=== PATIENT | female | born 1945 | race Caucasian/White ===

== ENCOUNTER 2018-04-08 13:18 | Inpatient (IN) | payer MEDICARE ==
[2018-04-08 13:53] LABS: Hemoglobin 12.3 g/dL (12.0-16.0); Mean Corpuscular Hemoglobin 30.3 pg (27.0-31.0); Mean Corpuscular Volume 91.6 fL (78.0-98.0); RBC Distribution Width 12.1 % (11.5-14.5); Red Blood Cell (RBC) Count 4.08 mill/uL (4.20-5.40); White Blood Cell (WBC) Count 9.2 thou/uL (4.8-10.8)
[2018-04-08 14:10] LABS: ALT (SGPT) 25 U/L (8-55); AST (SGOT) 39 U/L (5-34); Albumin 3.2 g/dL (3.4-4.8); Alkaline Phosphatase 208 U/L (40-150); Anion Gap 19 mmol/L (10-20); BUN (Urea Nitrogen) 58 mg/dL (9.8-20.1); Bilirubin, Total 0.6 mg/dL (0.2-1.2); Calc. Creatinine Clearance 0 mL/min (70-130); Calcium 8.9 mg/dL (7.8-10.44); Carbon Dioxide 19 mmol/L (23-31); Chloride 106 mmol/L (98-107); Estimated GFR-MDRD 9; Globulin 3.5 g/dL (2.4-3.5); Glucose 156 mg/dL (83-110); Potassium 3.7 mmol/L (3.5-5.1); Protein, Total 6.7 g/dL (6.0-8.3); Sodium 140 mmol/L (136-145)
[2018-04-08 14:21] LABS: Band 20 % (5-11); Eosinophils 1 % (0-10); Lymphocytes 1 % (21-51); MDiff Complete? YES; Mean Platelet Volume 7.7 fL (7.4-10.4); Metamyelocyte 1 % (0-0); Monocytes 2 % (0-10); Myelocyte 1 % (0-0); Neutrophil 73 % (42-75); PLT Morphology Comment Appears Decreased; Platelet Count 115 thou/uL (130-400); Reactive Lymphocytes 1 % (0-10)
[2018-04-08 14:42] LABS: Bilirubin Negative (Negative); Blood, Urine Negative (Negative); Clarity CLOUDY (Clear); Glucose, Urine (Dipstick) Negative (Negative); Leukocyte Trace (Negative); Nitrite Negative (Negative); Protein, Urine (Dipstick) 100 mg/dL (Neg-Trace); Specific Gravity, Urine 1.019 (1.002-1.036); Urobilinogen 0.2 mg/dL (0.2-1.0); pH, Urine 5.5 (5.0-9.0)
[2018-04-08 14:44] LABS: Bacteria/HPF None Seen HPF (None Seen); RBC/HPF 0-3 HPF (0-3); WBC/HPF 0-3 HPF (0-3)
[2018-04-08 14:47] LABS: Pathc Cast-AUWi Flag 5.81 (0-2.49)
--- NOTE | 2018-04-08 14:52 | CT ---
CT BRAIN WITHOUT CONTRAST: Date: 04/08/18 HISTORY: Altered mental status, weakness. FINDINGS: No evidence of infarct, hemorrhage, midline shift, or abnormal extra-axial fluid collections are seen . The ventricular size is appropriate and the basilar cisterns are patent. The bony calvarium is inta ct. The visualized paranasal sinuses and mastoid air cells are well aerated. IMPRESSION: No CT evidence of acute intracranial process. POS: [facility]
[2018-04-08 14:57] LABS: Hyaline Casts/LPF 0-3 HYALINE CAST LPF (0-3 Hyaline); Renal Epithelial None Seen HPF (0-3); Transitional Epithelial NONE SEEN HPF (0-3)
[2018-04-08 14:58] LABS: Manual Microscopic Reviewed? No Path Casts Seen
--- NOTE | 2018-04-08 15:21 | RAD ---
PORTABLE CHEST 1 VIEW: Date: 04/08/18 Time: 1437 hours HISTORY: Altered mental status, weakness. FINDINGS: Comparison made with exam of 12/23/08. The heart size is normal. The aorta is tortuous. The lungs are expanded without lobar consolidation, pneumothoraces, or pleural effusions. IMPRESSION: No radiographic evidence of acute cardiopulmonary process. POS: [facility]
--- NOTE | 2018-04-08 15:24 | RAD ---
LEFT HIP TWO VIEWS: History: Pain. Comparison: None. FINDINGS: No fracture. No malalignment. The left obturator ring is intact. IMPRESSION: No acute abnormality. POS: [facility]
--- NOTE | 2018-04-08 15:24 | RAD ---
RIGHT FOREARM TWO VIEW: History: Injury. Pain. Comparison: None. FINDINGS: No acute fracture or malalignment. IMPRESSION: Intact forearm. POS: [facility]
--- NOTE | 2018-04-08 15:25 | RAD ---
PELVIC ONE VIEW: History: Injury. Comparison: None. FINDINGS: No fracture. No malalignment. The pubic symphysis is unremarkable. There are pulmonary vascular calcifications. IMPRESSION: No acute displaced fracture. POS: [facility]
--- NOTE | 2018-04-08 17:02 | CT ---
CT ABDOMEN AND PELVIS WITHOUT CONTRAST STONE PROTOCOL 04/08/18 HISTORY: Pain, fatigue, weakness. COMPARISON: None. FINDINGS: The lung bases are clear. The patient is rotated in the gantry causing some limitations. There is a 3 mm nodule in the right middle lobe, axial image 1. No pericardial effusion. Mild atherosclerotic plaque of the aorta. There is focal ectasia of the infr arenal abdominal aorta just above the iliac bifurcation with aorta measuring up to 2.4 cm. Cholecystectomy. The common bile duct is dilated measuring approximately 12 mm with what appears to b e a distal choledocholithiasis on axial image 37 and coronal image 69. Mild intrahepatic biliary dila tation. There is pelvic floor prolapse with prolapse of the urinary bladder. There is no nephroureter olithiasis or hydroureteronephrosis. No secondary evidence of recently passed stone. No perinephric s tranding. Spleen is mildly enlarged measuring 12 cm. No dilated loops of large or small bowel. Mild diverticular disease of the sigmoid colon without active current inflammation. No acute spine fracture. IMPRESSION: 1. Dilated intrahepatic and extrahepatic biliary system with common bile duct measuring up to 12 -13 mm. There is also distal likely a partially obstructing choledocholithiasis near the papilla. ERC P recommended. Recommend correlation with patient's biliary enzymes. 2. No nephroureterolithiasis or hydroureteronephrosis. No secondary evidence of a recently passe d stone. 3. Mild splenomegaly. POS: [facility]
[2018-04-08] MEDS ORDERED: Piperacillin/Tazobactam 4.5 GM VIAL ONE (17:05)
[2018-04-08 17:30] LABS: CRP (Inflammatory) 28.06 mg/dL (= or < 0.5); Magnesium 1.7 mg/dL (1.6-2.6)
[2018-04-08 17:34] LABS: Creatinine, Urine 116.93 mg/dL (47-110)
[2018-04-08 17:35] LABS: Troponin I 0.028 ng/mL (< 0.028)
[2018-04-08] MEDS ORDERED: Vancomycin HCl 1 GM in Premix Bag 1 BAG IVPB SCH (18:45)
[2018-04-08] MEDS ORDERED: Meropenem 1 GM in Sodium Chloride 0.9% 100 ML IVPB SCH (18:45)
[2018-04-08] MEDS ORDERED: Ondansetron ODT 4 MG TAB PO PRN (18:47)
[2018-04-08] MEDS ORDERED: Senokot S 8.6-50 MG TAB PO PRN (18:47)
[2018-04-08] MEDS ORDERED: Ondansetron PF 4 MG/2 ML Vial IVP PRN (18:47)
[2018-04-08] MEDS ORDERED: Nitroglycerin 0.4 MG TAB (25 Tab Bottle) PO PRN (18:47)
--- NOTE | 2018-04-08 19:21 | HP ---
PRIMARY CARE PHYSICIAN: Annika Bass. CHIEF COMPLAINT: Altered mentation. HISTORY OF PRESENT ILLNESS: The patient is a 73-year-old female with chronic pain syndrome, on chronic NSAIDs, presented to the emergency room with altered mentation. The patient was brought in by her family with altered mentation that has been ongoing for last 2-3 days. The altered mentation is intermittent. The family noticed that it was taking longer than usual to get a response from the patient. There was no focal neurologic deficit reported. She also complained of left hip pain as well as right wrist pain. The family or the patient denies any history of fall. There is no fever or chills reported. The patient has been nauseous and having vomiting over the last 1 week. She had a normal bowel movement earlier today. She also had some abdominal cramping during the episodes of nausea, vomiting. No recent immobilization, travel, double vision, blurring of vision, facial asymmetry reported. In the emergency room, her initial vital signs showed temperature 99.1, respirations of 14, pulse rate of 98, blood pressure of 98/59 with O2 saturation 94% on room air. She was found to have 20% bandemia with acute kidney injury with BUN of 58, creatinine of 4.72. Her creatinine last year was 0.83. PAST MEDICAL HISTORY: 1. Hypertension, untreated. 2. Irritable bowel syndrome. 3. Chronic back pain, on chronic NSAIDs. PAST SURGICAL HISTORY: 1. Cataract surgery. 2. Bladder suspension. 3. Cholecystectomy. ALLERGIES: NO KNOWN DRUG ALLERGIES. CURRENT HOME MEDICATIONS: Reviewed with the patient and none. SOCIAL HISTORY: The patient currently lives at home with her family. No smoking, alcohol, or drug use. She is independent of activities of daily living. She makes her own decision with the help of her family. She is full code. FAMILY HISTORY: Negative for premature coronary artery disease. REVIEW OF SYSTEMS: All other review of systems was reviewed and were found negative. PHYSICAL EXAMINATION: VITAL SIGNS: As discussed above. GENERAL: A 73-year-old female, in no apparent distress. Mentation improved with IV fluids. HEENT: Head is atraumatic, normocephalic. Sclerae anicteric. Dry mucous membranes. No oral lesion. NECK: Supple. No JVD. No carotid bruit. LUNGS: Essentially clear to auscultation bilaterally. No wheezing, rales, rhonchi. No accessory muscle use. HEART: S1 and S2 present. Regular rate and rhythm. No rubs or gallops appreciated. No significant murmurs. ABDOMEN: Soft, nontender. Bowel sounds present. EXTREMITIES: No calf tenderness or edema. NEUROLOGIC: Cranial nerves 2 through 12 are normal on examination. Power was 5 /5 in all extremities. [id number] and urys-mp-yxvu test was normal. Sensation to touch was normal bilaterally. SKIN: Warm and dry. PSYCHIATRIC: The patient is alert, awake, and oriented x3. Somewhat slow to respond. PERIPHERAL VASCULAR: Radial pulses palpable bilaterally. MUSCULOSKELETAL: No joint swelling or tenderness. LABORATORY DATA: Creatinine 4.72 with BUN 58. WBC 9.2 with platelets 115, 20% bandemia. CRP 28. Ammonia is 20. Lactic acid 1.3. CK-MB of 20. Troponin of 0.052. Alkaline phosphorus 208. Urinalysis was negative for wbc bacteria. DIAGNOSTIC DATA: Chest x-ray by my review was negative for infiltrate. CT scan of the brain by my review was negative for acute findings. X-ray of the pelvis and the hip was negative for acute fractures. Right forearm x-ray was negative for acute fractures. CT of the abdomen, renal stone protocol, showed dilated intrahepatic and extrahepatic biliary system with the common duct measuring up to 12-13 mm. There is also a possible obstructing choledocholithiasis near the papilla. ERCP is recommended. EKG by my review showed sinus rhythm with nonspecific ST-T wave changes. IMPRESSION: 1. Toxic metabolic encephalopathy. 2. Acute kidney injury on chronic kidney disease stage 2. 3. Sepsis with acute organ dysfunction of unclear etiology. She has choledocholithiasis. 4. Elevated cardiac enzymes, probably secondary to demand ischemia. 5. Mild protein-calorie malnutrition. 6. Mild metabolic acidosis secondary to renal failure. 7. Hypertension, untreated. 8. Chronic pain syndrome, on chronic NSAIDs. 9. Thrombocytopenia, probably secondary to sepsis. 10. Left hip pain. X-rays were negative for acute fractures. 11. Right forearm pain. Again, x-rays were negative for acute fractures. 12. Abnormal LFTs, probably secondary to cholangitis. 13. Elevated inflammatory markers. CRP was 28.06. PLAN: Tele monitoring, IV Atbx - Vancomycin and Meropenem, Monitor Vancomycinc level, Blood cultures, AM labs GI and ID consultations. ALEX NSAIDs. Neurochecks. Echo. Plan of care was discussed with the patient and the family in detail. They stated understanding. Job ID: [id number]
[2018-04-08 20:55] VITALS: BMI 24.9
[2018-04-08] MEDS ORDERED: Vancomycin HCl 500 MG in Sodium Chloride 0.9% 100 ML IVPB SCH (21:30)
[2018-04-08] MEDS: Aspirin 81 mg Enteric Coated Tablet PO SCH (22:06)
[2018-04-08] MEDS: Metoprolol Tartrate 25 MG TAB PO SCH (22:06)
[2018-04-08] MEDS: Dextrose 5 % And 0.9 % NaCl 1,000 ML IV SCH (22:06)
[2018-04-08] MEDS: Acetaminophen 325 MG TAB PO PRN (22:08)
[2018-04-08] MEDS: MEROPENEM 1 GM/50 ML 1 GM in Premix Bag 1 BAG IVPB SCH (23:37)
[2018-04-09] MEDS ORDERED: Prevnar 13-Val Conj/PF 0.5 ML SYRINGE IM ONE ×2 (01:00→09:00)
[2018-04-09 05:28] LABS: #Eosinphils 0.1 thou/uL (0.0-0.7); #Lymphocytes 0.9 thou/uL (1.20-3.40); #Monocytes 0.6 thou/uL (0.11-0.59); #Neutrophils 5.9 thou/uL (1.40-6.50); %Eosinophils 0.8 % (0.0-10.0); %Monocytes 8.3 % (0.0-10.0); %Neutrophils 78.9 % (42.0-75.0); Hemoglobin 9.9 g/dL (12.0-16.0); Mean Corpuscular HGB CONC 33.4 g/dL (32.0-36.0); Mean Corpuscular Hemoglobin 30.5 pg (27.0-31.0); Mean Corpuscular Volume 91.4 fL (78.0-98.0); Platelet Count 82 thou/uL (130-400); RBC Distribution Width 12.2 % (11.5-14.5); Red Blood Cell (RBC) Count 3.23 mill/uL (4.20-5.40); White Blood Cell (WBC) Count 7.5 thou/uL (4.8-10.8)
[2018-04-09 05:32] LABS: Hemoglobin A1c 5.3 % (4.0-6.0)
[2018-04-09 05:32] LABS: INR-International Normal Ratio 1.2; Prothrombin Time 14.8 SEC (12.0-14.7)
[2018-04-09 05:41] LABS: ALT (SGPT) 21 U/L (8-55); AST (SGOT) 29 U/L (5-34); Albumin 2.4 g/dL (3.4-4.8); Alkaline Phosphatase 144 U/L (40-150); Anion Gap 15 mmol/L (10-20); BUN (Urea Nitrogen) 61 mg/dL (9.8-20.1); Bilirubin, Total 0.4 mg/dL (0.2-1.2); Calc. Creatinine Clearance 11 mL/min (70-130); Calcium 7.6 mg/dL (7.8-10.44); Carbon Dioxide 17 mmol/L (23-31); Chloride 112 mmol/L (98-107); Estimated GFR-MDRD 10; Globulin 2.8 g/dL (2.4-3.5); Glucose 156 mg/dL (83-110); Potassium 3.3 mmol/L (3.5-5.1); Protein, Total 5.2 g/dL (6.0-8.3); Sodium 141 mmol/L (136-145)
[2018-04-09 05:43] LABS: Troponin I 0.037 ng/mL (< 0.028)
[2018-04-09] MEDS: Dextrose 5 % And 0.9 % NaCl 1,000 ML IV SCH (06:36)
[2018-04-09] MEDS ORDERED: Potassium Chloride 20 MEQ/100 ML PREMIX BAG IVPB SCH ×2 (06:45)
[2018-04-09] MEDS: Acetaminophen 325 MG TAB PO PRN ×2 (06:48→17:12)
[2018-04-09] MEDS: D5 1/2 NS w/20 mEq KCL 1,000 ML IV SCH ×3 (09:10→18:41)
[2018-04-09] MEDS: Metoprolol Tartrate 25 MG TAB PO SCH ×2 (09:11→20:21)
[2018-04-09] MEDS ORDERED: traMADol HCl 50 MG TAB PO PRN ×2 (10:41→13:04)
[2018-04-09 11:56] LABS: Anion Gap 15 mmol/L (10-20); BUN (Urea Nitrogen) 58 mg/dL (9.8-20.1); Calc. Creatinine Clearance 11 mL/min (70-130); Calcium 7.8 mg/dL (7.8-10.44); Carbon Dioxide 17 mmol/L (23-31); Chloride 111 mmol/L (98-107); Estimated GFR-MDRD 9; Glucose 171 mg/dL (83-110); Potassium 3.5 mmol/L (3.5-5.1); Sodium 139 mmol/L (136-145)
--- NOTE | 2018-04-09 12:52 | RAD ---
PORTABLE CHEST: Date: 04/09/18 PROVIDED CLINICAL HISTORY: Shortness of breath. FINDINGS: Comparison with 04/08/18. Examination is rotated, limiting assessment. Given this limitation, significant interval change with respect to the prior examination is not apparent. IMPRESSION: As above. POS: [facility]
--- NOTE | 2018-04-09 13:47 | RAD ---
RIGHT WRIST THREE VIEWS: History: Pain, swelling. Comparison: None. FINDINGS: Intercarpal and radiocarpal joint space is preserved. No fracture. No cortical irregularity. IMPRESSION: Unremarkable three views right wrist. POS: [facility]
[2018-04-09 18:25] LABS: Anion Gap 15 mmol/L (10-20); BUN (Urea Nitrogen) 59 mg/dL (9.8-20.1); Calc. Creatinine Clearance 11 mL/min (70-130); Calcium 8.1 mg/dL (7.8-10.44); Carbon Dioxide 16 mmol/L (23-31); Chloride 112 mmol/L (98-107); Estimated GFR-MDRD 10; Glucose 168 mg/dL (83-110); Potassium 3.9 mmol/L (3.5-5.1); Sodium 139 mmol/L (136-145); Vancomycin, Random 16.9 ug/mL (See Comment)
[2018-04-09] MEDS: Aspirin 81 mg Enteric Coated Tablet PO SCH (20:21)
--- NOTE | 2018-04-09 20:37 | CON ---
DATE OF CONSULTATION: HISTORY OF PRESENT ILLNESS: We were asked by the [facility] to evaluate the patient. She has a complaint of right wrist pain and which she states as left hip pain, but when she shows me the area, it looks more SI joint/buttock pain. These are non injuries. They started last Thursday without any incident that family or patient can recall. Denies any history of gout. She does have little redness to the wrist, but she is able to move it around quite a bit, but any movement on the left lower extremity causes her a bit more pain. She does state history of having similar symptoms in the back region a few years ago and was told it was sciatica. She has no numbness and tingling in her hands or extremities. She is in the hospital for renal problems secondary to chronic NSAID use. PAST MEDICAL HISTORY: Positive for hypertension, irritable bowel syndrome, chronic back pain, and chronic use of NSAIDs. SURGERIES: Cataracts, bladder, cholecystectomy. ALLERGIES: NONE. SOCIAL HISTORY: Lives at home with the family. No smoking, alcohol, or drug use. She still continues to do her own ADLs. FAMILY HISTORY: Coronary artery disease. CURRENT MEDICATIONS: NSAIDs only. PHYSICAL EXAMINATION: GENERAL: Well-nourished, pleasant female. Family at the bedside. Speech is clear. Affect pleasant. Answer questions appropriately. She is alert and oriented x3. HEENT: Normal exam. Face symmetric. Tongue midline. No hearing deficit. NECK: Supple. Trachea midline. RESPIRATORY: In no distress. Breathing well. EXTREMITIES: Upper extremities are both equal size, shape, symmetry, bulk and tone with the exception of the right upper extremity had little redness and edema to the dorsal aspect of her right wrist. Otherwise, she is able to move that fairly well. She cannot make a full fist due to her hand hurting. If I move her wrist around, she seems to tolerate this fairly well. Sensation to the upper extremities are intact. Lower extremities, equal size, shape, symmetry, normal bulk and tone. I rotated her hip in and out, flexed it, extended it, and this was not painful. Palpation into the SI joint region, buttock region on the left caused her a fair amount of pain. DP and PT pulses and sensations are grossly intact. X-RAYS: I reviewed x-rays of her wrist. I did not see any gross abnormalities, fractures. Report is not available. I also looked at her hip. Remarkably for a 73 year old active female, she only has minimal arthritic problems in her hip, but no fracture are seen either. ASSESSMENT: 1. Renal failure. 2. Pain to the right wrist and sacroiliac joint region. PLAN: I am going to get physical therapy to work with patient and do some range of motion of her wrist and have nursing make a heating pad for her back. We will also get a topical ointment to see if this helps those areas. We will give her a wrist brace for her wrist and therapy again worked on both areas. I cannot give her any NSAID due to her kidney functions. I did up her Ultram from 50 to 100 q.4, which may help her pain. The patient probably needs to see some form of pain management doctor in the future for injection versus medical management of her pain. She understand this as does her daughter. No neurosurgical intervention is needed from an Orthopedic standpoint at this time. We will check on her this weekend to see if any of the above has given her any relief. The patient's daughter and family happy with the plan. Job ID: [id number]
[2018-04-09] MEDS: Acetaminophen 325 MG TAB PO SCH (22:53)
--- NOTE | 2018-04-09 23:56 | PRG ---
DATE OF SERVICE: 04/09/2018 SUBJECTIVE: The patient continues to have discomfort in the right wrist as well as back. She feels slightly better today. Nausea has somewhat improved. No abdominal pain reported. She denies any cough, shortness of breath, or diarrhea. OBJECTIVE: VITAL SIGNS: Temperature 98.1, pulse rate of 78, respirations 18, blood pressure of 141/60, and O2 saturation 95% on room air. DIAGNOSTIC STUDIES: Telemetry monitoring showed sinus rhythm. Intake of 1850, output 750. CURRENT MEDICATIONS: Current medications were reviewed. The patient is currently on: 1. IV fluids. 2. Meropenem. 3. Vancomycin. 4. Aspirin. 5. Low-dose metoprolol. 6. Protonix. PHYSICAL EXAMINATION: GENERAL: A 73-year-old female, in mild distress due to right wrist pain as well as hip pain. NECK: Supple. No JVD. No neck stiffness. LUNGS: Clear to auscultation bilaterally with scattered rhonchi at bases. HEART: S1 and S2 present. Regular rate and rhythm. No rubs or gallops appreciated. ABDOMEN: Soft. Bowel sounds present. EXTREMITIES: No edema or calf tenderness. LAB FINDINGS: WBC 7.5 with 78.9% neutrophils, no bandemia. PT of 14.8. Potassium 3.3 with creatinine 4.51, albumin 2.4. Troponin 0.037. Urine random protein was 85, creatinine was 116. Vancomycin level was 16.9. Blood culture was positive for strep pneumoniae. Urine culture negative. Echocardiogram showed left ventricular ejection fraction of 55% to 60% with diastolic dysfunction. Right wrist x-ray was negative. A repeat chest x-ray today was negative for infiltrates. IMPRESSION: 1. Toxic metabolic encephalopathy. 2. Acute kidney injury on chronic kidney disease stage 2. 3. Sepsis with acute organ dysfunction with Streptococcus pneumoniae bacteremia. 4. Choledocholithiasis. 5. Elevated cardiac enzymes, secondary to demand ischemia. 6. Hypertension. 7. Chronic pain syndrome on chronic non-steroidal antiinflammatory drugs. 8. Thrombocytopenia, secondary to sepsis. 9. Left hip as well as right wrist pain. X-rays were repeated today, which were negative for fracture. 10. Slightly abnormal LFTs probably secondary to cholelithiasis. 11. Elevated inflammatory markers. PLAN: The patient will be monitored on telemetry unit. We will adjust IV fluids. We will add sodium bicarbonate. We will replace potassium. We will recheck labs later today. We will consult Orthopedics due to worsening pain. We will recheck labs in a.m. We will continue vancomycin and meropenem. We will add tramadol. We will make Tylenol scheduled for pain. Continue Lopressor. Job ID: [id number]
[2018-04-10] MEDS: MEROPENEM 1 GM/50 ML 1 GM in Premix Bag 1 BAG IVPB SCH (00:42)
[2018-04-10] MEDS: Sodium Bicarbonate 50 MEQ in Dextrose 5 %-0.45 % NaCl 1,000 ML IV SCH ×7 (03:02→23:37)
[2018-04-10] MEDS: Lidocaine 5% Patch TD SCH ×2 (03:02→06:10)
[2018-04-10] MEDS ORDERED: Morphine 2 MG/ML SYRINGE SLOW IVP SCH (04:30)
--- NOTE | 2018-04-10 06:49 | CON ---
DATE OF CONSULTATION: 04/09/2018 REASON FOR CONSULT: "Cholangitis." HISTORY OF PRESENT ILLNESS: Ms. Herrera is a 73-year-old female who was admitted to the hospital. She states for a couple of days before admission, she had nausea and vomiting. Her daughter felt she did not look good and insisted on bringing her to the emergency room. Here, she was found to be a little bit confused and somnolent. She was dehydrated. She had a low-grade temperature 99.1. Apparently, prior to admission, she was complaining of left hip pain and right wrist pain and she has been feeling weak. The day before admission, per the emergency room note, she was confused and slurring words, not acting herself. She had a fall and vomiting and then began vomiting again apparently 2 days ago the day prior to admission. Presently, the patient has been admitted to the hospital and started on empiric antibiotic. She had imaging studies, noncontrast CT scan of the abdomen pelvis which showed a possible choledocholithiasis and prominent 12 mm right common bile duct. She has normal liver function tests and essentially normal CBC. Since I have been consulted, her blood cultures have been come back positive for strep pneumoniae. Talking with the patient, she is more alert and awake now. She has had no dysuria, frequency, or urgency. She asked when she can go home. She denies cough or shortness of breath. She denies fever or chills. She cannot recall how long her wrist and hip have hurt, but she shows me her right wrist and states that her left hip bothers her as well. She denies any falls, but per the emergency room note, there may have been a fall at home within the past week. REVIEW OF SYSTEMS: The patient states about a month or 2 ago, she had some pain in right upper quadrant with nausea and vomiting, it is very similar to her episode when she had her gallbladder removed last year. Denies any chest pain or shortness of breath, reflux, dysphagia, odynophagia, melena, hematochezia, or hematemesis. She denies any weight loss. She denies any overt rigor. She denies right upper quadrant pain. PAST MEDICAL HISTORY: Notable for hypertension and chronic back pain, taking chronic NSAIDs. PAST SURGICAL HISTORY: Cholecystectomy, bladder suspension, and cataract surgery. ALLERGIES: NONE. MEDICATIONS: At home; 1. Aspirin. 2. Tylenol. 3. Tums. 4. Bengay. Medications here; 1. Vancomycin. 2. Tramadol. 3. D5 half-normal saline with 20 of potassium at 150 an hour. 4. Protonix. 5. Zofran. 6. Nitroglycerin. 7. Metoprolol. 8. Meropenem. FAMILY HISTORY: Noncontributory. SOCIAL HISTORY: The patient lives now with her family. She does not smoke, drink, or use drugs. PHYSICAL EXAMINATION: Presently, the patient is resting comfortably in bed. She is on the stroke floor. VITAL SIGNS: Temperature max since admission on 04/08 at 1900 hours was 99.9 that was at 3:00 this morning. She has been afebrile since. Pulse is 77 down from upper 90s on admission, respirations 16, blood pressure 158/72 up from 110/49 on admission. GENERAL: She is resting comfortably in bed. She has no distress. HEENT: She is nonicteric. Oropharynx is moist. LUNGS: Clear. HEART: Regular rate and rhythm. No rubs, gallops, or murmurs. ABDOMEN: Soft and nontender. There is no rebound or guarding. EXTREMITIES: No clubbing, cyanosis, or edema. She has a very tender left hip and tender right wrist. LABORATORY STUDIES: White count was 9.2 yesterday, it is 7.5 today; hemoglobin 12.3 with hydration 9.2; platelet count 115,000, today 82,000; bands 20% bands yesterday, there is no band count today done it seems. INR is 1.2 this morning. Chemistries; sodium is 141; potassium is 3.3, today it is 3.5; her bicarb is , anion gap 11; BUN is 61 yesterday, 58 today; creatinine 4.51, 4.55 today; glucose 171, calcium 7.6. Lactic acid is 1.3. Hemoglobin A1c 5.3; bilirubin of 0.4, yesterday it was 0.6. AST and ALT 29 and 21, yesterday 39 and 25; alkaline phosphatase 144, it was 208 yesterday. Albumin is 2.4. Lipase is 11. Urine; trace leukocytes, no bacteria. Microbiology; blood cultures gram-positive cocci, streptococcus pneumoniae. Urine cultures are negative. Influenza is negative. CT scan reviewed with Radiology, there is possibly a small filling defect in the distal duct. The common bile duct was 12 mm, intrahepatic ducts not appear overly dilated. Imaging is suboptimal with lack of any IV contrast. This was done obviously because of her elevated creatinine. I reviewed the films myself. ASSESSMENT: 1. This is a 73-year-old female who comes in with Streptococcus pneumoniae sepsis, who has swollen right wrist, which is tender and swollen left hip, which is tender, these have been imaged. One wonders about bacterial seeding, possible endovascular infection such as cholangitis or diskitis. She does not have overt pneumonia on x-rays. I have been called for the question of cholangitis, although she shows no symptoms of cholangitis at this time. She has normal liver function tests. She has no right upper quadrant pain. 2. Possible choledocholithiasis on CT. This is equivocal. Call with scan. It may be reasonable to consider evaluating this further in the future. She has had some bouts of nausea and vomiting in the past, which are difficult to ascertain the cause of, but presently does not appear she has cholangitis now with the resolution of her present infection before embarking on further evaluation of this, probably first with Magnetic resonance cholangiopancreatography if her liver enzymes are normal. At this time, I see no need for emergent endoscopic retrograde cholangiopancreatography. 3. We will follow along with you during hospital course. We will repeat liver function tests tomorrow. Agree with plans for ID consult. Job ID: [id number]
[2018-04-10] MEDS: Acetaminophen 325 MG TAB PO SCH ×3 (08:39→21:09)
[2018-04-10] MEDS: Metoprolol Tartrate 25 MG TAB PO SCH ×2 (08:39→21:09)
[2018-04-10] MEDS: Methyl Salicylate/Menthol 85 GM TUBE TOP PRN ×2 (08:44→18:27)
[2018-04-10 10:11] LABS: ALT (SGPT) 20 U/L (8-55); AST (SGOT) 26 U/L (5-34); Albumin 2.5 g/dL (3.4-4.8); Alkaline Phosphatase 163 U/L (40-150); Anion Gap 13 mmol/L (10-20); BUN (Urea Nitrogen) 59 mg/dL (9.8-20.1); Bilirubin, Total 0.4 mg/dL (0.2-1.2); Calc. Creatinine Clearance 12 mL/min (70-130); Calcium 8.3 mg/dL (7.8-10.44); Carbon Dioxide 17 mmol/L (23-31); Chloride 112 mmol/L (98-107); Estimated GFR-MDRD 11; Globulin 2.9 g/dL (2.4-3.5); Glucose 159 mg/dL (83-110); Lipase 90 U/L (8-78); Magnesium 1.8 mg/dL (1.6-2.6); Potassium 3.3 mmol/L (3.5-5.1); Protein, Total 5.4 g/dL (6.0-8.3); Sodium 139 mmol/L (136-145)
[2018-04-10 10:33] LABS: Band 16 % (5-11); Hemoglobin 10.8 g/dL (12.0-16.0); Lymphocytes 7 % (21-51); MDiff Complete? YES; Mean Corpuscular HGB CONC 33.3 g/dL (32.0-36.0); Mean Corpuscular Hemoglobin 30.5 pg (27.0-31.0); Mean Corpuscular Volume 91.4 fL (78.0-98.0); Mean Platelet Volume 7.7 fL (7.4-10.4); Metamyelocyte 2 % (0-0); Monocytes 9 % (0-10); Neutrophil 66 % (42-75); PLT Morphology Comment Appears Decreased; Platelet Count 105 thou/uL (130-400); RBC Distribution Width 12.6 % (11.5-14.5); Red Blood Cell (RBC) Count 3.54 mill/uL (4.20-5.40); White Blood Cell (WBC) Count 12.9 thou/uL (4.8-10.8)
[2018-04-10] MEDS: Fentanyl 100 MCG/2 ML VIAL SLOW IVP PRN (11:21)
[2018-04-10] MEDS ORDERED: cloNIDine 0.1 MG TAB PO PRN (11:46)
[2018-04-10] MEDS ORDERED: Labetalol HCl 100 MG/20 ML VIAL SLOW IVP PRN (11:46)
--- NOTE | 2018-04-10 12:43 | PRG ---
DATE OF SERVICE: 04/10/2018 SUBJECTIVE: The patient is seen and examined. Overnight events noted. She refused IV fluids and blood draws. She was in significant pain overnight. At this time, she denies any nausea or vomiting. She continues to have pain in the right wrist and left hip. REVIEW OF SYSTEMS: As discussed above, no chest pain or palpitations. OBJECTIVE: VITAL SIGNS: Temperature 98.5, respirations 16, pulse rate of 81, blood pressure is 163/66. This morning, it was 189/100. O2 saturation 94% on room air. Intake of 1850 and output 1300. GENERAL: This is a 73-year-old female, in no apparent distress. Somnolent. NECK: Supple. No JVD. No neck stiffness. LUNGS: Clear to auscultation bilaterally. No wheezing, rales, or rhonchi. HEART: S1 and S2 present. Regular rate and rhythm. No rubs or gallops appreciated. ABDOMEN: Soft. Bowel sounds present. EXTREMITIES: No edema or calf tenderness. She continues to have tenderness over the right wrist. NEUROLOGIC: As discussed above. No new focal deficit. CURRENT MEDICATIONS: Current medications were reviewed. The patient is currently on IV fluids, that is on hold from last night since the patient refused. She is also on: 1. Meropenem. 2. Aspirin. 3. Metoprolol. 4. Protonix. LABORATORY FINDINGS: WBC 12.9, hemoglobin 10.8, and platelet 105. Creatinine down to 4.0 from 4.5 yesterday, potassium 3.3, magnesium 1.8, alkaline phosphatase 163, and albumin 2.5. Blood cultures 2/2 Streptococcus pneumoniae. Urine culture negative. Echocardiogram showed ejection fraction 55% to 60% with diastolic dysfunction. Telemetry monitoring by my review showed sinus rhythm. IMPRESSION: 1. Toxic metabolic encephalopathy, multifactorial. 2. Acute kidney injury on chronic kidney disease stage 2. The patient has agreed to continue IV fluids. The family will probably have to stay overnight with the patient. We will recheck basic metabolic panel in a.m. 3. Sepsis with acute organ dysfunction with Strep pneumoniae bacteremia. We will continue meropenem. Vancomycin can probably be discontinued. Infectious Disease has been consulted. 4. Choledocholithiasis with normal liver function tests. The patient has slightly abnormal alkaline phosphatase today. 5. Elevated cardiac enzymes, secondary to demand ischemia. 6. Hypertension, uncontrolled. Blood pressure this morning was 189/100 probably due to agitation. Blood pressure improved without any antihypertensives. We will add some clonidine and labetalol as needed for systolic blood pressure 180. 7. Left hip and right wrist pain of unclear etiology. X-rays were negative. Orthopedic team is following. 8. Elevated inflammatory marker. 9. Hypokalemia. We will replace. 10. Metabolic acidosis secondary to renal failure. 11. Moderate protein-calorie malnutrition. 12. Thrombocytopenia, probably secondary to sepsis. PLAN: Discussed with the family. Job ID: [id number]
--- NOTE | 2018-04-10 13:59 | PRG ---
DATE OF SERVICE: 04/10/2018 SUBJECTIVE: Ms. Herrera states she feels better. She has a splint on her right arm now. Family is at the bedside and did note that when she had pain a few weeks ago, that she said it was very similar to her biliary colic type pain before her cholecystectomy. Present antibiotics include meropenem. OBJECTIVE: VITAL SIGNS: Temperature is 98, pulse 78, blood pressure is 172/70. GENERAL: The patient is thin and frail. LUNGS: Clear. ABDOMEN: Soft and nontender. LABORATORY DATA: White count 12.9, up from 7.5; hemoglobin 10.8, stable; platelets 105. INR 1.2. Sodium 139, potassium 3.3. BUN and creatinine are 59 and 4. Alkaline phosphatase 163, bilirubin 0.4, AST and ALT are 26 and 20. Protein 5.4, albumin 2.5, lipase 90. Blood culture, strep pneumoniae. ASSESSMENT: 1. Streptococcus pneumoniae sepsis, acute on chronic kidney injury, likely related to prerenal azotemia, possibly vasculitis with strep infections should be considered. 2. Possible choledocholithiasis as per CT. At this time, LFTs are normal. No signs of obstruction. No signs of cholangitis. 3. Thrombocytopenia. 4. Right wrist and left hip pain. This seems to be new, likely related to her bacteremia. 5. Hypokalemia. RECOMMENDATIONS: 1. Agree with replacing hypokalemia. 2. Agree with ID consult. 3. May consider Renal consult with her elevated creatinine, which was not elevated in the past and acute infection and possibly got some type of autoimmune-mediated vasculitis affecting the kidney. 4. With regard to the question of choledocholithiasis, there are no signs of cholangitis. There is no signs of symptoms from this and there are no signs of biliary obstruction at this time. This could be re-evaluated when the patient's symptoms of acute infection resolves with MRCP. If there are some jump in LFTs, some other clinical concern that there is clinically significant choledocholithiasis. We could always re-intervene with ERCP, but at this time, she seems quiescent, . Job ID: [id number]
[2018-04-10] MEDS ORDERED: Lidocaine Patch Removal 1 EACH TOP SCH (15:00)
[2018-04-10] MEDS ORDERED: Vancomycin HCl 750 MG in Sodium Chloride 0.9% 250 ML 250 ML IVPB SCH (18:00)
[2018-04-10] MEDS: traMADol HCl 50 MG TAB PO PRN (18:24)
[2018-04-10] MEDS: Aspirin 81 mg Enteric Coated Tablet PO SCH (21:09)
--- NOTE | 2018-04-11 00:07 | CON ---
DATE OF CONSULTATION: 04/10/2018 REASON FOR CONSULTATION: Bacteremia. HISTORY OF PRESENT ILLNESS: A 73-year old patient has a history of hypertension with irritable bowel syndrome with chronic low back pain and has noticed progressively worsening changes in mental status associated with worsening left hip and the right wrist swelling and pain. She did not report fever or chills, although she does have significant amount of cognitive impairment, particularly with short-term memory impairment. She denied any headaches. No visual symptoms, sore throat, odynophagia, or dysphagia. No cough, sputum production, or chest pain. No abdominal pain or diarrhea. No genitourinary symptoms. There were some reports of abdominal cramps during the episodes of nausea, but not outside those retching episodes. Initial findings revealed a temperature of 99.1, respirations 14, BP 98/59, and O2 saturation 94% on room air. The creatinine was markedly elevated compared to baseline. The patient did not appear in distress. Lungs are clear. The abdomen is soft and nontender. Heart examination is normal. There is evidence of swelling of the right hand and other findings that are described below. PAST MEDICAL HISTORY: Includes hypertension, irritable bowel syndrome, and chronic low back pain, on NSAIDs. PAST SURGICAL HISTORY: Bladder suspension, cholecystectomy, cataract surgery. ALLERGIES: NONE. SOCIAL HISTORY: Never smoker. Lives with family members. PHYSICAL EXAMINATION: VITAL SIGNS: T-max 99.9, currently 98.2. SKIN: The patient has peripheral IV access and is voiding with an indwelling Salazar catheter. She has no lymphadenopathy. HEENT: Ocular movements conjugate. Sclerae white. Oral cavity moist. She has dentures. NECK: Supple. LUNGS: Symmetric with clear breath sounds, S1, S2. Regular rate. No S3 or S4. ABDOMEN: Soft without tenderness. No ascites or bladder distention. EXTREMITIES: The right hand is swollen with limitation of range of motion at the wrist. The swelling involves mostly the dorsal aspect of the hand and wrist. There is an area of what appears to be early blistering, may be pustule formation in the medial aspect of the right hand dorsal aspect. There is tenderness on palpation of the lumbosacral spine area at the sacroiliac joint region. The range of motion of the left hip is intact without eliciting any pain. No other joint inflammatory activity noted. Pulses are 1+ in dorsalis pedis. There is no edema. She is able to move the extremities with no limitations. She is awake, knows her name, took a little bit of time to give me the date and needed some coaching. LABORATORY DATA: White cell count was 9.2, is up to 12.9; hemoglobin 10.8; platelets 115,000, down to 105,000; bands were 20%, now is at 16%. Chemistry with a creatinine which was 4.51 and now it is 4.0; sodium 139. Liver profile normal except for mild elevation of alkaline phosphatase. Albumin is 2.5. Urinalysis with 0 to 3 wbc's, 100 protein, and blood cultures with Streptococcus pneumoniae, 2/2 sets of blood cultures with pending susceptibilities. CURRENT MEDICATIONS: Include: 1. Lidocaine. 2. Other p.r.n. medications. 3. Meropenem. IMAGING STUDIES: The patient's echocardiogram; EF of 60%, some diastolic dysfunction, left atrium is mildly dilated, aortic valve is sclerotic with [id number] tricuspid regurgitation. Abdomen and pelvis CT scan showed no pericardial effusion, moderate focal ectasia of the infrarenal abdominal aorta, cholecystectomy, dilation of common bile duct with possible distal choledocholithiasis and mild intrahepatic biliary dilatation. Spleen is somewhat enlarged. The patient had a wrist x-ray, which demonstrated normal findings. She had a chest x-ray, which demonstrated some limitation technically, but otherwise , no infiltrates. She had a pelvis x-ray and a hip x-ray, which were not remarkable. ASSESSMENT: History of hypertension and irritable bowel syndrome, who presents with acute renal failure, and Streptococcus pneumoniae bacteremia and toxic metabolic encephalopathy, which has improved. Acute renal failure secondary to the hemodynamic and toxic-metabolic consequences of the bacteremia. DISCUSSION: Differential diagnosis includes Streptococcus pneumoniae bacteremia from upper respiratory tract with dissemination to the right wrist or the small muscles of the hand and spread as well to the left sacroiliac area including the possibility of pyomyositis of the pelvic musculature. Lumbosacral spine diskitis and osteomyelitis appears less likely. Left hip joint infection is less likely to switch her to Rocephin. Imaged the wrist and hand, and the left side of the pelvis with MRI without contrast. Job ID: [id number] [facility]
[2018-04-11] MEDS: Fentanyl 100 MCG/2 ML VIAL SLOW IVP PRN ×2 (06:15→18:31)
[2018-04-11 06:27] LABS: ALT (SGPT) 19 U/L (8-55); AST (SGOT) 21 U/L (5-34); Albumin 2.4 g/dL (3.4-4.8); Alkaline Phosphatase 165 U/L (40-150); Anion Gap 13 mmol/L (10-20); BUN (Urea Nitrogen) 50 mg/dL (9.8-20.1); Bilirubin, Total 0.5 mg/dL (0.2-1.2); Calc. Creatinine Clearance 17 mL/min (70-130); Calcium 8.2 mg/dL (7.8-10.44); Carbon Dioxide 21 mmol/L (23-31); Chloride 111 mmol/L (98-107); Estimated GFR-MDRD 15; Globulin 2.8 g/dL (2.4-3.5); Glucose 182 mg/dL (83-110); Potassium 3.1 mmol/L (3.5-5.1); Protein, Total 5.2 g/dL (6.0-8.3); Sodium 142 mmol/L (136-145)
[2018-04-11] MEDS: Sodium Bicarbonate 50 MEQ in Dextrose 5 %-0.45 % NaCl 1,000 ML IV SCH ×5 (06:28→21:45)
[2018-04-11 06:50] LABS: Band 19 % (5-11); Hemoglobin 10.1 g/dL (12.0-16.0); Lymphocytes 9 % (21-51); MDiff Complete? YES; Mean Corpuscular Hemoglobin 29.9 pg (27.0-31.0); Mean Corpuscular Volume 90.7 fL (78.0-98.0); Mean Platelet Volume 7.6 fL (7.4-10.4); Monocytes 13 % (0-10); Neutrophil 59 % (42-75); Platelet Count 131 thou/uL (130-400); RBC Distribution Width 12.5 % (11.5-14.5); Red Blood Cell (RBC) Count 3.39 mill/uL (4.20-5.40)
[2018-04-11] MEDS ORDERED: cloNIDine 0.1 MG TAB PO PRN (07:25)
[2018-04-11] MEDS ORDERED: hydrALAZINE 20 MG/ML VIAL SLOW IVP PRN (07:26)
[2018-04-11] MEDS: cefTRIAXone\\ROCEPHIN 1 GM in Sodium Chloride 0.9% 100 ML IVPB SCH (09:11)
[2018-04-11] MEDS: Senokot S 8.6-50 MG TAB PO SCH ×2 (09:13→21:11)
[2018-04-11] MEDS: Acetaminophen 325 MG TAB PO SCH ×3 (09:13→21:11)
[2018-04-11] MEDS: Amlodipine 5 MG TAB PO SCH ×2 (09:13→21:09)
[2018-04-11] MEDS: Carvedilol 6.25 MG TAB PO SCH ×2 (09:14→18:29)
[2018-04-11] MEDS: Potassium Chloride 20 MEQ TAB PO SCH ×3 (09:14→18:30)
[2018-04-11] MEDS: Polyethylene Glycol 3350 17 GM Packet PO SCH (09:19)
[2018-04-11] MEDS: Lidocaine 5% Patch TD SCH (09:20)
--- NOTE | 2018-04-11 13:05 | PRG ---
DATE OF SERVICE: 04/11/2018 SUBJECTIVE: The patient denies any new complaints at this time. She continues to have discomfort in the right wrist and the lower back. No fever or chills reported. She was able to sleep for approximately 5 hours per family report. There was no confusion reported overnight. No altered mentation, nausea, vomiting, or diarrhea reported. REVIEW OF SYSTEMS: As discussed above. OBJECTIVE: VITAL SIGNS: Temperature 98.5, pulse 77, respirations 16, blood pressure 155/68, O2 saturation 93% on 2 L nasal cannula. Blood pressure overnight was 195/80, 169/64. GENERAL: A 73-year-old female, in no apparent distress. LUNGS: Clear to auscultation bilaterally. No wheezing, rales, or rhonchi. HEART: S1 and S2 present. Regular rate and rhythm. ABDOMEN: Soft. Bowel sounds present. EXTREMITIES: No edema or calf tenderness. There is warmth and tenderness over the right wrist. LABORATORY DATA: Lab findings; WBC 16 with 19% bandemia. Potassium 3.1, sodium 142, BUN 50, creatinine 2.98, albumin 2.4, alkaline phosphatase 165. Blood cultures, Streptococcus pneumoniae sensitive to ceftriaxone. Echocardiogram showed ejection fraction 55% to 60% with [id number]-[id number] tricuspid regurgitation. IMPRESSION: 1. Toxic metabolic encephalopathy, improving. 2. Sepsis with acute organ dysfunction with Streptococcus pneumoniae bacteremia. 3. Acute kidney injury on chronic kidney disease stage 2, slowly improving. 4. Choledocholithiasis with normal liver function tests. 5. Elevated cardiac enzymes secondary to demand ischemia. 6. Hypertension. 7. Left hip and right wrist pain. 8. Hypokalemia. 9. Metabolic acidosis due to renal failure. 10. Moderate protein-calorie malnutrition. 11. Thrombocytopenia, improving. PLAN: The patient has been started on ceftriaxone. We will reduce IV fluid to 100 mL an hour. We will add amlodipine for elevated blood pressure. Continue carvedilol. We will continue lidocaine patch. Due to uncontrolled pain, we will increase fentanyl patch. The patient is scheduled to have MRI of the pelvis and right upper extremity. We will recheck labs in a.m. Renal function is improving. We will also advance her diet to regular. Plan was discussed with the patient and the family. They stated understanding. The patient is unstable for discharge. She will probably require 2 or 3 more days. Job ID: [id number]
--- NOTE | 2018-04-11 14:58 | PRG ---
DATE OF SERVICE: 04/11/2018 SUBJECTIVE: Ms. Herrera is downstairs, having MRI of her back and her right wrist at the order of Infectious Disease. The family notes that she has been doing well today. Nurse's notes she has been doing well. She has been afebrile overnight. Her blood pressure is 189/73 and pulse is 77. She is not in the room to be examined or interviewed. ASSESSMENT: 1. Possible choledocholithiasis without signs of obstruction with normal liver enzymes. These are still normal today. 2. Leukocytosis. 3. Streptococcus pneumoniae, sepsis bacteremia with pain in her right wrist and the sacroiliac area. Infectious Disease is having these areas scanned osteomyelitis or diskitis very reasonable. PLAN: From a GI standpoint, we will continue to monitor her labs as she improves from her sepsis, which is not of biliary etiology. We may need to evaluate the possibility of choledocholithiasis raised on the imaging studies with either MRCP or ERCP, but again we are waiting for further improvement. The family notes she is much improved and much more alert today. We will follow along with you and re-evaluate the patient tomorrow. Job ID: [id number]
--- NOTE | 2018-04-11 16:27 | MRI ---
MRI PELVIS WITHOUT CONTRAST ENHANCEMENT: HISTORY: Bacteremia with left SI joint pain. History of fall. COMPARISON: CT study of 04/08/2018. FINDINGS: There are arthritic changes of the lumbar spine and a scoliotic deformity. There is evidence for some red marrow reconversion, which can have multiple causes. The pelvic ring is intact. The SI joints are symmetric. There are no signs of any sacral insufficie ncy type fracture. The symphysis is normal in appearance. Intrapelvic contents show some trace free fluid, which is felt to be physiologic. There is a Salazar catheter in place. There are tendinopathy changes of both hamstring tendon origins. There are minimal subcutaneous edema changes lateral to both hips. On the right side, there is some edema change within the soft tissue, anterior to the right hip. Dana nges are more within the subcutaneous fat, between the muscle groups, with some edema change near the pectineus muscle, which could indicate some muscle strain. Also, with some edema change near the le ft obturator internis muscle, inferiorly. These changes could be the sequela of a fall, with some ev idence for muscle strain. IMPRESSION: 1. No evidence of any fracture of the bony pelvic ring. No insufficiency type fractures. 2. Some nonspecific subcutaneous edema change adjacent to both hips. In addition, there are some mi ld edema changes near the right pectineus muscle and both obturator internis muscles, more prominent on the left, which could indicate some muscle strain in these areas. There is also mild edema change seen anterior to the right hip with some edema change interspersed between the muscle groups but not involving the muscles. Again, this could be the sequela of a fall. No evidence of hip fracture. POS: [facility]
--- NOTE | 2018-04-11 17:08 | MRI ---
MRI RIGHT WRIST PERFORMED WITHOUT CONTRAST ENHANCEMENT: HISTORY: Bacteremia with swelling of the right wrist and hand. COMPARISON: Plain film examination of the wrist from 04/09/2018. FINDINGS: The marrow signal change within the metacarpals, as well as the carpal Bones, and the distal radius a nd ulna, are normal. The carpal tunnel region shows a nonspecific fluid density collection, which is approximately a centimeter in size and deep to the carpal tunnel region, at the level of the space o f the third metacarpal, probably just an incidental finding. The extensor tendons appear unremarkabl e. There are subcutaneous edema changes noted. A triangular fibrocartilage tear is present. There is also radial carpal joint space narrowing, part icularly at the level of the lunate and distal radius. A fluid collection tracks proximally along th e distal ulna. This is probably related to triangular fibrocartilage tear. Some mild nonspecific ed dee change between the radius and ulna in the distal forearm, in the region of the interosseous membr ane. This is not entirely included on this examination but could be the sequela of injury. IMPRESSION: 1. No evidence for osteomyelitis or any definite signs of any abscess collection. There are some mi ld edema changes between the distal radius and ulna of the distal forearm. This could indicate some edema, related to injury. 2. Chronic appearing triangular fibrocartilage tear. POS: [facility]
[2018-04-11] MEDS: traMADol HCl 50 MG TAB PO PRN (21:09)
[2018-04-11] MEDS: Lidocaine Patch Removal 1 EACH TOP SCH (21:11)
[2018-04-11] MEDS: Aspirin 81 mg Enteric Coated Tablet PO SCH (21:11)
[2018-04-12] MEDS: Acetaminophen 325 MG TAB PO PRN (00:59)
[2018-04-12 05:30] LABS: ALT (SGPT) 22 U/L (8-55); AST (SGOT) 25 U/L (5-34); Albumin 2.4 g/dL (3.4-4.8); Alkaline Phosphatase 185 U/L (40-150); Anion Gap 12 mmol/L (10-20); BUN (Urea Nitrogen) 36 mg/dL (9.8-20.1); Bilirubin, Total 0.6 mg/dL (0.2-1.2); Calc. Creatinine Clearance 27 mL/min (70-130); Calcium 8.2 mg/dL (7.8-10.44); Carbon Dioxide 26 mmol/L (23-31); Chloride 106 mmol/L (98-107); Estimated GFR-MDRD 27; Globulin 2.8 g/dL (2.4-3.5); Glucose 163 mg/dL (83-110); Potassium 3.3 mmol/L (3.5-5.1); Protein, Total 5.2 g/dL (6.0-8.3); Sodium 141 mmol/L (136-145)
[2018-04-12 05:40] LABS: Band 10 % (5-11); Eosinophils 1 % (0-10); Hemoglobin 10.4 g/dL (12.0-16.0); Lymphocytes 10 % (21-51); MDiff Complete? YES; Mean Corpuscular HGB CONC 33.5 g/dL (32.0-36.0); Mean Corpuscular Hemoglobin 30.2 pg (27.0-31.0); Mean Corpuscular Volume 90.3 fL (78.0-98.0); Mean Platelet Volume 7.3 fL (7.4-10.4); Monocytes 2 % (0-10); Myelocyte 1 % (0-0); Neutrophil 76 % (42-75); Platelet Count 149 thou/uL (130-400); RBC Distribution Width 12.7 % (11.5-14.5); Red Blood Cell (RBC) Count 3.45 mill/uL (4.20-5.40); White Blood Cell (WBC) Count 14.7 thou/uL (4.8-10.8)
[2018-04-12] MEDS ORDERED: 1/2 NS w/KCL 20 mEq 1,000 ML IV SCH (06:45)
[2018-04-12] MEDS: Fentanyl 100 MCG/2 ML VIAL SLOW IVP PRN ×4 (07:54→20:14)
[2018-04-12] MEDS: Carvedilol 6.25 MG TAB PO SCH ×2 (08:26→16:05)
[2018-04-12] MEDS: Senokot S 8.6-50 MG TAB PO SCH (08:27)
[2018-04-12] MEDS: Amlodipine 5 MG TAB PO SCH ×2 (08:27→20:12)
[2018-04-12] MEDS: Acetaminophen 325 MG TAB PO SCH ×3 (08:27→20:12)
[2018-04-12] MEDS: Lidocaine 5% Patch TD SCH (08:27)
[2018-04-12] MEDS: Polyethylene Glycol 3350 17 GM Packet PO SCH (08:27)
[2018-04-12] MEDS: cefTRIAXone\\ROCEPHIN 1 GM in Sodium Chloride 0.9% 100 ML IVPB SCH (08:42)
[2018-04-12] MEDS ORDERED: Magnesium Sulfate 4 GM in Sodium Chloride 0.9% 250 ML 250 ML IVPB SCH (09:00)
[2018-04-12] MEDS: 1/2 NS w/KCL 20 mEq 1,000 ML IV SCH ×2 (09:54→22:43)
[2018-04-12] MEDS: Calcium Carbonate 500 MG ChewTAB PO PRN ×2 (09:56→15:39)
--- NOTE | 2018-04-12 10:26 | PRG ---
DATE OF SERVICE: 04/12/2018 SUBJECTIVE: Ms. Herrera states she still has a lot of pain in her right wrist and left hip. She did have her MRIs yesterday. She is eating some. She has been stable overnight. OBJECTIVE: VITAL SIGNS: Temperature is 97.5, blood pressure 191/81, respirations 18, pulse 78. GENERAL: She has slight cough. She complains some sore throat. LUNGS: Clear. HEART: Regular rate and rhythm. ABDOMEN: Soft and nontender. EXTREMITIES: She still has swollen right hand and some erythema there. She complains of pain in the left sacral area, which is still slightly tender. LABORATORY DATA: White count 14.7, hemoglobin 10.4, and platelet count 149. INR on the was 1.2. Sodium 141, potassium 3.3, BUN and creatinine are 36 and 1.85, magnesium 1.2. AST and ALT were 25 and 22, alkaline phosphatase 185, albumin 2.4, protein 5.2. MRI of the wrist and back showed some soft tissue inflammation. ASSESSMENT: 1. Streptococcus pneumoniae sepsis of unclear etiology with likely involvement of the soft tissues of the right wrist and left hip with no signs of osteomyelitis on x-rays, improving with IV antibiotics. 2. Acute renal failure on admission, likely due to sepsis and dehydration, improving. 3. Mildly elevated alkaline phosphatase with a CT showing prominent common bile duct and possible stone in the distal duct. Radiology and they seem to think this is real in light of the dilated duct and the elevated alkaline phosphatase, she will need an ERCP. I am not sure that an MRCP, if it is negative, is enough. PLAN: We will plan for ERCP on April 14 in the morning. Discussed this with the family. Job ID: [id number]
[2018-04-12] MEDS ORDERED: Polyethylene Glycol 3350 17 GM Packet PO PRN (11:04)
--- NOTE | 2018-04-12 12:48 | CON ---
DATE OF CONSULTATION: 04/12/2018 HISTORY OF PRESENT ILLNESS: Ms. Herrera is a 73-year-old female, who has been admitted about 4 days and evaluated by multiple services, currently being treated and has 4 positive blood cultures and acute renal failure. The patient has hip and SI joint pain and right wrist pain. The patient has had x-rays and MRIs of these areas. The patient is currently undergoing therapy. . PHYSICAL EXAMINATION: GENERAL: Alert and oriented female, in no acute distress, resting in bed. VITAL SIGNS: Afebrile. EXTREMITIES: Right upper extremity swelling. Sensation intact distally with intact. Fingers, brisk cap refill. No open wounds. No abscesses. Warm. No erythema noted. Low back tenderness. The patient is neurovascularly intact distally. Tenderness at the SI joint. No acute abscesses noted. LABORATORY DATA: MRI review of the wrist shows no abscess or fluid collections or osteomyelitis or acute fractures. Pelvis MRI showed the same. IMPRESSION: Left SI joint pain, right wrist pain, concern for possible cellulitis versus possible other acute kidney injury. ASSESSMENT AND PLAN: Would recommend continued IV antibiotic management, splinting of the right wrist, weightbearing as tolerated. If her pelvis pain should persist, she may need neurosurgical consult for evaluation of her lumbar spine. Job ID: [id number]
--- NOTE | 2018-04-12 18:08 | PDOC.PN ---
- Subjective Encounter Start Date: 04/12/18 Encounter Start Time: 08:00 Patient seen and examined for Sepsis. Pain controlled on current meds. No new complaints. No overnight events - Objective Resuscitation Status - Order Detail: 04/08/18 18:45 Resuscitation Status Routine Resuscitation Status: FULL: Full Resuscitation MAR Reviewed: Yes Vital Signs & Weight: Vital Signs (12 hours) Temp Pulse Resp BP BP Pulse Ox 04/12/18 16:05 168/86 H 04/12/18 15:36 98.4 F 81 18 168/86 H 90 L 04/12/18 11:57 97.7 F 79 18 174/81 H 95 04/12/18 08:30 96 04/12/18 08:27 78 191/86 H 04/12/18 08:26 191/86 H 04/12/18 08:00 97.5 F L 78 18 191/86 H 96 Weight Weight 143 lb I&O: 04/11/18 04/12/18 04/13/18 06:59 06:59 06:59 Intake Total 3983 2765 845 Output Total 1200 3490 1375 Balance 2783 -725 -530 Result Diagrams: 04/12/18 04:51 04/12/18 04:51 EKG Reviewed by me: Yes (Tele SR) Phys Exam - Physical Examination Constitutional: NAD Respiratory: no wheezing, no rhonchi Cardiovascular: RRR, no rub Gastrointestinal: soft, non-tender, positive bowel sounds Musculoskeletal: no edema Neurological: moves all 4 limbs Dx/Plan - Plan DVT proph w/SCDs 1. Toxic metabolic encephalopathy, improving. 2. Sepsis with acute organ dysfunction with Streptococcus pneumoniae bacteremia. 3. Acute kidney injury on chronic kidney disease stage 2, slowly improving. 4. Choledocholithiasis with normal liver function tests. 5. Elevated cardiac enzymes secondary to demand ischemia. 6. Hypertension. 7. Left hip and right wrist pain. 8. Hypokalemia. 9. Metabolic acidosis due to renal failure. 10. Moderate protein-calorie malnutrition. 11. Thrombocytopenia, improving. PLAN: Cont IV ceftriaxone. Cont IV fluids - reduce rate and change to 1/2 NS with KCL AM labs Transfer to medical ERCP in 2 days Cont current meds as below ALEX jones after ERCP Review of Systems - Review of Systems Respiratory: negative: Cough, Dry, Shortness of Breath, Hemoptysis, SOB with Excertion, Pleuritic Pain, Sputum, Wheezing Cardiovascular: negative: chest pain, palpitations, orthopnea, paroxysmal nocturnal dyspnea, edema, light headedness, other - Medications/Allergies Allergies/Adverse Reactions: Allergies Allergy/AdvReac Type Severity Reaction Status Date / Time No Known Allergies Allergy Verified 04/09/18 00:57 Medications: Current Medications Acetaminophen (Tylenol) 650 mg PO Q4H PRN PRN Reason: Headache/Fever/Mild Pain (1-3) Last Admin: 04/12/18 00:59 Dose: 650 mg Acetaminophen (Tylenol) 650 mg PO TID [facility] Last Admin: 04/12/18 15:39 Dose: 650 mg Amlodipine Besylate (Norvasc) 5 mg PO BID [facility] Last Admin: 04/12/18 08:27 Dose: 5 mg Aspirin (Ecotrin) 81 mg PO HS [facility] Last Admin: 04/11/18 21:11 Dose: 81 mg Calcium Carbonate (Tums) 1,000 mg PO Q4H PRN PRN Reason: Heartburn or Indigestion Last Admin: 04/12/18 15:39 Dose: 1,000 mg Carvedilol (Coreg) 12.5 mg PO BID[facility] Last Admin: 04/12/18 16:05 Dose: 12.5 mg Clonidine (Catapres) 0.1 mg PO Q4H PRN PRN Reason: Systolic BP > 180 Fentanyl (Sublimaze) 25 mcg SLOW IVP Q4H PRN PRN Reason: Severe Pain (7-10) Last Admin: 04/12/18 16:05 Dose: 25 mcg Hydralazine HCl (Apresoline) 10 mg SLOW IVP Q4H PRN PRN Reason: SBP Greater Than 180 Ceftriaxone Sodium 1 gm/ (Sodium Chloride) 100 mls @ 200 mls/hr IVPB Q24HR [facility] Last Admin: 04/12/18 08:42 Dose: 100 mls Potassium Chloride/Sodium Chloride (1/2 Ns W/Kcl 20 Meq) 1,000 mls @ 75 mls/hr IV .[id number] [facility] Last Admin: 04/12/18 09:54 Dose: 1,000 mls Labetalol HCl (Normodyne) 10 mg SLOW IVP Q4H PRN PRN Reason: Systolic BP > 180 Last Admin: 04/11/18 06:12 Dose: 10 mg Lidocaine (Lidoderm 5% Patch) 1 patch TD DAILY [facility] Last Admin: 04/12/18 08:27 Dose: 1 patch Menthol/Methyl Salicylate (Muscle Rub Cream (Bengay)) 1 gm TOP QID PRN PRN Reason: Mild Pain (1-3) Last Admin: 04/10/18 18:27 Dose: 1 gm Methylcellulose (Citrucel) 500 mg PO DAILY [facility] Miscellaneous Medication (Pharmacy To Dose) 1 each IVPB PRN PRN PRN Reason: Pharmacy to dose Miscellaneous Medication (Lidocaine Patch Removal) 1 each TOP 2100 [facility] Last Admin: 04/11/18 21:11 Dose: Not Given Nitroglycerin (Nitrostat) 0.4 mg PO Q5MIN PRN PRN Reason: Chest Pain Ondansetron HCl (Zofran Odt) 4 mg PO Q6H PRN PRN Reason: Nausea/Vomiting Ondansetron HCl (Zofran) 4 mg IVP Q6H PRN PRN Reason: Nausea/Vomiting Pantoprazole Sodium (Protonix) 40 mg PO HS [facility] Last Admin: 04/11/18 21:09 Dose: 40 mg Polyethylene Glycol (Miralax) 17 gm PO DAILY PRN PRN Reason: Constipation Senna/Docusate Sodium (Senokot S) 2 tab PO BID PRN PRN Reason: Constipation Sodium Chloride (Flush - Normal Saline) 10 ml IVF PRN PRN PRN Reason: Saline Flush Last Admin: 04/11/18 09:11 Dose: 10 ml Tramadol HCl (Ultram) 100 mg PO Q12H PRN PRN Reason: Mild-Moderate Pain (1-5) Last Admin: 04/11/18 21:09 Dose: 100 mg
[2018-04-12] MEDS: Aspirin 81 mg Enteric Coated Tablet PO SCH (20:12)
[2018-04-12] MEDS: Lidocaine Patch Removal 1 EACH TOP SCH (20:13)
[2018-04-13] MEDS: Fentanyl 100 MCG/2 ML VIAL SLOW IVP PRN ×7 (01:07→23:29)
[2018-04-13] MEDS: 1/2 NS w/KCL 20 mEq 1,000 ML IV SCH ×2 (02:02→15:35)
[2018-04-13 06:13] LABS: ALT (SGPT) 18 U/L (8-55); AST (SGOT) 24 U/L (5-34); Albumin 2.5 g/dL (3.4-4.8); Alkaline Phosphatase 169 U/L (40-150); Anion Gap 11 mmol/L (10-20); BUN (Urea Nitrogen) 23 mg/dL (9.8-20.1); Bilirubin, Total 0.8 mg/dL (0.2-1.2); Calc. Creatinine Clearance 43 mL/min (70-130); Calcium 8.2 mg/dL (7.8-10.44); Carbon Dioxide 29 mmol/L (23-31); Chloride 100 mmol/L (98-107); Estimated GFR-MDRD 45; Globulin 2.9 g/dL (2.4-3.5); Glucose 128 mg/dL (83-110); Magnesium 1.6 mg/dL (1.6-2.6); Potassium 3.2 mmol/L (3.5-5.1); Protein, Total 5.4 g/dL (6.0-8.3); Sodium 137 mmol/L (136-145)
[2018-04-13] MEDS ORDERED: Magnesium Sulfate 2 GM in Sodium Chloride 0.9% 100 ML IVPB SCH (07:30)
[2018-04-13] MEDS ORDERED: Magnesium 2 GM/50 ML 2 GM in Premix Bag 1 BAG IVPB SCH (07:45)
[2018-04-13] MEDS: Potassium Chloride 10 MEQ TAB PO SCH ×3 (07:53→19:14)
[2018-04-13] MEDS: Acetaminophen 325 MG TAB PO SCH ×3 (07:53→21:00)
[2018-04-13] MEDS: Amlodipine 5 MG TAB PO SCH ×2 (07:53→19:46)
[2018-04-13] MEDS: Lidocaine 5% Patch TD SCH (07:53)
[2018-04-13] MEDS: Carvedilol 6.25 MG TAB PO SCH ×2 (07:53→16:46)
[2018-04-13 08:11] LABS: Band 10 % (5-11); Hemoglobin 10.7 g/dL (12.0-16.0); Lymphocytes 22 % (21-51); MDiff Complete? YES; Mean Corpuscular HGB CONC 33.5 g/dL (32.0-36.0); Mean Corpuscular Hemoglobin 30.1 pg (27.0-31.0); Mean Corpuscular Volume 89.7 fL (78.0-98.0); Mean Platelet Volume 7.1 fL (7.4-10.4); Neutrophil 68 % (42-75); Platelet Count 187 thou/uL (130-400); RBC Distribution Width 12.3 % (11.5-14.5); Red Blood Cell (RBC) Count 3.57 mill/uL (4.20-5.40); Toxic Granulation SLIGHT; White Blood Cell (WBC) Count 13.8 thou/uL (4.8-10.8)
[2018-04-13] MEDS: cefTRIAXone\\ROCEPHIN 1 GM in Sodium Chloride 0.9% 100 ML IVPB SCH (09:02)
[2018-04-13] MEDS: Citrucel 500 MG TAB PO SCH (09:02)
[2018-04-13] MEDS: traMADol HCl 50 MG TAB PO PRN (12:54)
--- NOTE | 2018-04-13 13:12 | PDOC.PN ---
- Subjective Encounter Start Date: 04/13/18 Encounter Start Time: 09:00 Patient seen and examined for Sepsis. Feels better. Pain better controlled. No fever/chills. No new complaints. No overnight events - Objective Resuscitation Status - Order Detail: 04/08/18 18:45 Resuscitation Status Routine Resuscitation Status: FULL: Full Resuscitation MAR Reviewed: Yes Vital Signs & Weight: Vital Signs (12 hours) Temp Pulse Resp BP BP Pulse Ox 04/13/18 07:55 98.2 F 74 18 177/91 H 94 L 04/13/18 07:53 75 172/75 H Weight Weight 143 lb I&O: 04/12/18 04/13/18 04/14/18 06:59 06:59 06:59 Intake Total 2765 1085 Output Total 3490 1375 Balance -725 290 Result Diagrams: 04/13/18 05:35 04/13/18 05:35 Phys Exam - Physical Examination Constitutional: NAD Respiratory: no wheezing, no rhonchi Cardiovascular: RRR, no rub Gastrointestinal: soft, non-tender, positive bowel sounds Musculoskeletal: no edema tenderness over the Rt wrist and Left lower back Dx/Plan - Plan DVT proph w/SCDs 1. Toxic metabolic encephalopathy. 2. Sepsis with acute organ dysfunction with Streptococcus pneumoniae bacteremia. 3. Acute kidney injury on chronic kidney disease stage 2, slowly improving. 4. Choledocholithiasis with normal liver function tests. ERCP in AM 5. Elevated cardiac enzymes secondary to demand ischemia. 6. Hypertension. 7. Left hip and right wrist pain. 8. Hypokalemia. 9. Metabolic acidosis due to renal failure. 10. Moderate protein-calorie malnutrition. 11. Thrombocytopenia, improving. PLAN: Replace Potassium and Magnesium Add PO Hydralazine due to elevated BP Cont current Atbx Reduce IVF AM labs ERCP in AM Cont other meds as below ALEX jones after ERCP Review of Systems - Review of Systems Respiratory: negative: Cough, Dry, Shortness of Breath, Hemoptysis, SOB with Excertion, Pleuritic Pain, Sputum, Wheezing Cardiovascular: negative: chest pain, palpitations, orthopnea, paroxysmal nocturnal dyspnea, edema, light headedness, other - Medications/Allergies Allergies/Adverse Reactions: Allergies Allergy/AdvReac Type Severity Reaction Status Date / Time No Known Allergies Allergy Verified 04/09/18 00:57 Medications: Current Medications Acetaminophen (Tylenol) 650 mg PO Q4H PRN PRN Reason: Headache/Fever/Mild Pain (1-3) Last Admin: 04/12/18 00:59 Dose: 650 mg Acetaminophen (Tylenol) 650 mg PO TID [facility] Last Admin: 04/13/18 07:53 Dose: 650 mg Amlodipine Besylate (Norvasc) 5 mg PO BID [facility] Last Admin: 04/13/18 07:53 Dose: 5 mg Aspirin (Ecotrin) 81 mg PO HS [facility] Last Admin: 04/12/18 20:12 Dose: 81 mg Calcium Carbonate (Tums) 1,000 mg PO Q4H PRN PRN Reason: Heartburn or Indigestion Last Admin: 04/12/18 15:39 Dose: 1,000 mg Carvedilol (Coreg) 12.5 mg PO BID-[facility] Last Admin: 04/13/18 07:53 Dose: 12.5 mg Clonidine (Catapres) 0.1 mg PO Q4H PRN PRN Reason: Systolic BP > 180 Last Admin: 04/12/18 18:13 Dose: 0.1 mg Fentanyl (Sublimaze) 25 mcg SLOW IVP Q4H PRN PRN Reason: Severe Pain (7-10) Last Admin: 04/13/18 12:55 Dose: 25 mcg Hydralazine HCl (Apresoline) 10 mg SLOW IVP Q4H PRN PRN Reason: SBP Greater Than 180 Ceftriaxone Sodium 1 gm/ (Sodium Chloride) 100 mls @ 200 mls/hr IVPB Q24HR [facility] Last Admin: 04/13/18 09:02 Dose: 100 mls Potassium Chloride/Sodium Chloride (1/2 Ns W/Kcl 20 Meq) 1,000 mls @ 75 mls/hr IV .[id number] [facility] Last Admin: 04/13/18 02:02 Dose: 1,000 mls Labetalol HCl (Normodyne) 10 mg SLOW IVP Q4H PRN PRN Reason: Systolic BP > 180 Last Admin: 04/11/18 06:12 Dose: 10 mg Lidocaine (Lidoderm 5% Patch) 1 patch TD DAILY [facility] Last Admin: 04/13/18 07:53 Dose: 1 patch Menthol/Methyl Salicylate (Muscle Rub Cream (Bengay)) 1 gm TOP QID PRN PRN Reason: Mild Pain (1-3) Last Admin: 04/10/18 18:27 Dose: 1 gm Methylcellulose (Citrucel) 500 mg PO DAILY [facility] Last Admin: 04/13/18 09:02 Dose: 500 mg Miscellaneous Medication (Pharmacy To Dose) 1 each IVPB PRN PRN PRN Reason: Pharmacy to dose Miscellaneous Medication (Lidocaine Patch Removal) 1 each TOP 2100 [facility] Last Admin: 04/12/18 20:13 Dose: Not Given Nitroglycerin (Nitrostat) 0.4 mg PO Q5MIN PRN PRN Reason: Chest Pain Ondansetron HCl (Zofran Odt) 4 mg PO Q6H PRN PRN Reason: Nausea/Vomiting Ondansetron HCl (Zofran) 4 mg IVP Q6H PRN PRN Reason: Nausea/Vomiting Pantoprazole Sodium (Protonix) 40 mg PO [facility] Last Admin: 04/12/18 20:13 Dose: 40 mg Polyethylene Glycol (Miralax) 17 gm PO DAILY PRN PRN Reason: Constipation Potassium Chloride (Klor-Con 10) 10 meq PO TID-[facility] Stop: 04/14/18 08:01 Last Admin: 04/13/18 12:53 Dose: 10 meq Senna/Docusate Sodium (Senokot S) 2 tab PO BID PRN PRN Reason: Constipation Sodium Chloride (Flush - Normal Saline) 10 ml IVF PRN PRN PRN Reason: Saline Flush Tramadol HCl (Ultram) 100 mg PO Q12H PRN PRN Reason: Mild-Moderate Pain (1-5) Last Admin: 04/13/18 12:54 Dose: 100 mg
[2018-04-13] MEDS: Methyl Salicylate/Menthol 85 GM TUBE TOP PRN (13:24)
[2018-04-13] MEDS ORDERED: Saccharomyces boulardii 250 MG CAP PO SCH (15:00)
[2018-04-13] MEDS: hydrALAZINE 25 MG TAB PO SCH ×2 (15:36→19:46)
[2018-04-13] MEDS: Acetaminophen 325 MG TAB PO PRN (19:43)
[2018-04-13] MEDS: Aspirin 81 mg Enteric Coated Tablet PO SCH (19:45)
[2018-04-13] MEDS ORDERED: Potassium Chloride 10 MEQ TAB PO SCH (19:45)
[2018-04-13] MEDS: Lidocaine Patch Removal 1 EACH TOP SCH (19:47)
--- NOTE | 2018-04-13 22:34 | PRG ---
DATE OF SERVICE: 04/13/2018 SUBJECTIVE: Ms. Herrera ate the breakfast. She at the bedside. She has no complaints except for left hip pain and right wrist pain. OBJECTIVE: VITAL SIGNS: Temperature is 98, pulse 89, blood pressure 173/77. LUNGS: Clear. HEART: Regular rhythm. ABDOMEN: Nontender. LABORATORY DATA: White count 13.8, hemoglobin 10.7, platelet count 187. Alkaline phosphatase 169. LFT is normal. BUN and creatinine are 23 and 1.1. ASSESSMENT: 1. Strep pneumococcal sepsis, unclear etiology, likely respiratory. 2. Mildly elevated alkaline phosphatase with a CT showing possible stone in the common bile duct. 3. Long history of irritable bowel syndrome. PLAN: As her she has had chronic GI symptoms common bile duct per Radiology, I have reviewed the films with them . We will proceed with ERCP tomorrow. Job ID: [id number]
[2018-04-14] MEDS: Fentanyl 100 MCG/2 ML VIAL SLOW IVP PRN ×2 (04:14→08:14)
[2018-04-14 04:17] LABS: #Eosinphils 0.1 thou/uL (0.0-0.7); #Lymphocytes 1.7 thou/uL (1.20-3.40); #Monocytes 0.7 thou/uL (0.11-0.59); %Basophils 0.1 % (0.0-1.0); %Eosinophils 0.9 % (0.0-10.0); %Lymphocytes 11.6 % (21.0-51.0); %Monocytes 4.9 % (0.0-10.0); %Neutrophils 82.5 % (42.0-75.0); Hemoglobin 10.7 g/dL (12.0-16.0); Mean Corpuscular HGB CONC 33.1 g/dL (32.0-36.0); Mean Corpuscular Hemoglobin 29.7 pg (27.0-31.0); Mean Corpuscular Volume 89.8 fL (78.0-98.0); Platelet Count 219 thou/uL (130-400); RBC Distribution Width 12.4 % (11.5-14.5); White Blood Cell (WBC) Count 14.6 thou/uL (4.8-10.8)
[2018-04-14 04:37] LABS: Phosphorus 2.8 mg/dL (2.3-4.7)
[2018-04-14 04:40] LABS: ALT (SGPT) 19 U/L (8-55); AST (SGOT) 27 U/L (5-34); Albumin 2.5 g/dL (3.4-4.8); Alkaline Phosphatase 154 U/L (40-150); Anion Gap 14 mmol/L (10-20); BUN (Urea Nitrogen) 19 mg/dL (9.8-20.1); Bilirubin, Total 0.7 mg/dL (0.2-1.2); Calc. Creatinine Clearance 50 mL/min (70-130); Calcium 8.2 mg/dL (7.8-10.44); Carbon Dioxide 28 mmol/L (23-31); Chloride 101 mmol/L (98-107); Estimated GFR-MDRD 54; Glucose 110 mg/dL (83-110); Magnesium 1.3 mg/dL (1.6-2.6); Potassium 3.6 mmol/L (3.5-5.1); Protein, Total 5.5 g/dL (6.0-8.3); Sodium 139 mmol/L (136-145)
[2018-04-14] MEDS: 1/2 NS w/KCL 20 mEq 1,000 ML IV SCH ×2 (05:25→13:16)
[2018-04-14] MEDS: Lidocaine 5% Patch TD SCH (07:36)
[2018-04-14] MEDS: Carvedilol 6.25 MG TAB PO SCH ×2 (07:37→16:29)
[2018-04-14] MEDS: cefTRIAXone\\ROCEPHIN 1 GM in Sodium Chloride 0.9% 100 ML IVPB SCH (07:37)
[2018-04-14] MEDS ORDERED: Potassium Chloride 10 MEQ TAB PO SCH (08:00)
[2018-04-14] MEDS: Amlodipine 5 MG TAB PO SCH ×2 (09:00→20:23)
[2018-04-14] MEDS: Acetaminophen 325 MG TAB PO SCH ×3 (09:00→20:23)
[2018-04-14] MEDS: hydrALAZINE 25 MG TAB PO SCH ×3 (09:00→20:25)
[2018-04-14] MEDS ORDERED: Morphine 2 MG/ML SYRINGE SLOW IVP PRN (09:23)
--- NOTE | 2018-04-14 09:28 | PDOC.PN ---
- Subjective Encounter Start Date: 04/14/18 Encounter Start Time: 08:30 Patient seen and examined for Sepsis. Still has significant pain in hip. No N/ V. No new complaints. No overnight events - Objective Resuscitation Status - Order Detail: 04/08/18 18:45 Resuscitation Status Routine Resuscitation Status: FULL: Full Resuscitation MAR Reviewed: Yes Vital Signs & Weight: Vital Signs (12 hours) Temp Pulse Resp BP BP Pulse Ox 04/14/18 08:00 94 L 04/14/18 07:40 98.5 F 88 18 169/72 H 94 L 04/14/18 07:37 169/72 H Weight Weight 143 lb I&O: 04/13/18 04/14/18 04/15/18 06:59 06:59 06:59 Intake Total 1085 1250 Output Total 1375 2100 Balance -290 -850 Result Diagrams: 04/14/18 03:59 04/14/18 03:59 Additional Labs: Laboratory Tests 04/14/18 03:59 Magnesium 1.3 L Phys Exam - Physical Examination Constitutional: NAD Respiratory: no wheezing, no rhonchi Cardiovascular: RRR, no rub Gastrointestinal: soft, non-tender, positive bowel sounds Musculoskeletal: no edema Neurological: moves all 4 limbs Dx/Plan - Plan DVT proph w/SCDs 1. Toxic metabolic encephalopathy. improving 2. Sepsis with acute organ dysfunction with Streptococcus pneumoniae bacteremia with possible Myositis ?source 3. Acute kidney injury on chronic kidney disease stage 2,improving. 4. Choledocholithiasis. 5. Elevated cardiac enzymes secondary to demand ischemia. 6. Hypertension. 7. Left hip and right wrist pain. 8. Hypokalemia/hypomagnesemia 9. Metabolic acidosis due to renal failure. 10. Moderate protein-calorie malnutrition. 11. Thrombocytopenia, improving. PLAN: Replace Magnessium Cont current Atbx Cont IVF ERCP today Cont other meds as below DC jones in AM if stable AM labs DC Fentanyl Add [place] and IV Morphine PRN Review of Systems - Review of Systems Respiratory: negative: Cough, Dry, Shortness of Breath, Hemoptysis, SOB with Excertion, Pleuritic Pain, Sputum, Wheezing Cardiovascular: negative: chest pain, palpitations, orthopnea, paroxysmal nocturnal dyspnea, edema, light headedness, other - Medications/Allergies Allergies/Adverse Reactions: Allergies Allergy/AdvReac Type Severity Reaction Status Date / Time No Known Allergies Allergy Verified 04/09/18 00:57 Medications: Current Medications Acetaminophen (Tylenol) 650 mg PO Q4H PRN PRN Reason: Headache/Fever/Mild Pain (1-3) Last Admin: 04/13/18 19:43 Dose: 650 mg Acetaminophen (Tylenol) 650 mg PO TID [facility] Last Admin: 04/13/18 21:00 Dose: Not Given Hydrocodone Bitart/Acetaminophen ([place] 5/325) 1 tab PO Q4H PRN PRN Reason: Moderate Pain (4-6) Amlodipine Besylate (Norvasc) 5 mg PO BID [facility] Last Admin: 04/13/18 19:46 Dose: 5 mg Aspirin (Ecotrin) 81 mg PO HS [facility] Last Admin: 04/13/18 19:45 Dose: 81 mg Calcium Carbonate (Tums) 1,000 mg PO Q4H PRN PRN Reason: Heartburn or Indigestion Last Admin: 04/12/18 15:39 Dose: 1,000 mg Carvedilol (Coreg) 12.5 mg PO BID-[facility] Last Admin: 04/14/18 07:37 Dose: 12.5 mg Clonidine (Catapres) 0.1 mg PO Q4H PRN PRN Reason: Systolic BP > 180 Last Admin: 04/12/18 18:13 Dose: 0.1 mg Hydralazine HCl (Apresoline) 10 mg SLOW IVP Q4H PRN PRN Reason: SBP Greater Than 180 Hydralazine HCl (Apresoline) 25 mg PO TID [facility] Last Admin: 04/13/18 19:46 Dose: 25 mg Ceftriaxone Sodium 1 gm/ (Sodium Chloride) 100 mls @ 200 mls/hr IVPB Q24HR [facility] Last Admin: 04/14/18 07:37 Dose: 100 mls Potassium Chloride/Sodium Chloride (1/2 Ns W/Kcl 20 Meq) 1,000 mls @ 50 mls/hr IV .Q20H [facility] Last Admin: 04/14/18 05:25 Dose: 1,000 mls Labetalol HCl (Normodyne) 10 mg SLOW IVP Q4H PRN PRN Reason: Systolic BP > 180 Last Admin: 04/11/18 06:12 Dose: 10 mg Lidocaine (Lidoderm 5% Patch) 1 patch TD DAILY [facility] Last Admin: 04/14/18 07:36 Dose: 1 patch Menthol/Methyl Salicylate (Muscle Rub Cream (Bengay)) 1 gm TOP QID PRN PRN Reason: Mild Pain (1-3) Last Admin: 04/13/18 13:24 Dose: 1 gm Methylcellulose (Citrucel) 500 mg PO DAILY [facility] Last Admin: 04/13/18 09:02 Dose: 500 mg Miscellaneous Medication (Pharmacy To Dose) 1 each IVPB PRN PRN PRN Reason: Pharmacy to dose Miscellaneous Medication (Lidocaine Patch Removal) 1 each TOP 2100 [facility] Last Admin: 04/13/18 19:47 Dose: Not Given Morphine Sulfate (Morphine) 2 mg SLOW IVP Q4H PRN PRN Reason: Pain Nitroglycerin (Nitrostat) 0.4 mg PO Q5MIN PRN PRN Reason: Chest Pain Ondansetron HCl (Zofran Odt) 4 mg PO Q6H PRN PRN Reason: Nausea/Vomiting Ondansetron HCl (Zofran) 4 mg IVP Q6H PRN PRN Reason: Nausea/Vomiting Pantoprazole Sodium (Protonix) 40 mg PO HS [facility] Last Admin: 04/13/18 19:45 Dose: 40 mg Polyethylene Glycol (Miralax) 17 gm PO DAILY PRN PRN Reason: Constipation Saccharomyces Boulardii (Florastor) 250 mg PO DAILY [facility] Senna/Docusate Sodium (Senokot S) 2 tab PO BID PRN PRN Reason: Constipation Sodium Chloride (Flush - Normal Saline) 10 ml IVF PRN PRN PRN Reason: Saline Flush Tramadol HCl (Ultram) 100 mg PO Q12H PRN PRN Reason: Mild-Moderate Pain (1-5) Last Admin: 04/13/18 12:54 Dose: 100 mg
[2018-04-14] MEDS ORDERED: Magnesium Sulfate 4 GM in Sodium Chloride 0.9% 250 ML 250 ML IVPB SCH (09:45)
[2018-04-14] MEDS ORDERED: Indomethacin 50 MG SUPP ONE (09:51)
[2018-04-14] MEDS ORDERED: Iothalamate Meglumine 60% 50 ML VIAL FS ONE (09:53)
[2018-04-14] MEDS ORDERED: Fentanyl 100 MCG/2 ML VIAL ONE (09:58)
[2018-04-14] MEDS ORDERED: Ondansetron HCl/PF 4 MG/2 ML Vial IVP PRN (12:14)
[2018-04-14] MEDS ORDERED: Promethazine HCl 25 MG/ML VIAL SLOW IVP PRN (12:14)
[2018-04-14] MEDS ORDERED: HYDROmorphone 2 MG/ML VIAL SLOW IVP PRN (12:14)
[2018-04-14] MEDS ORDERED: Promethazine HCl 25 MG/ML VIAL IM PRN (12:14)
[2018-04-14] MEDS ORDERED: PACU-Morphine 4MG/ML VIAL SLOW IVP PRN (12:14)
[2018-04-14] MEDS ORDERED: Morphine Sulfate 2 MG/ML SYRINGE SLOW IVP PRN (12:14)
[2018-04-14] MEDS: Citrucel 500 MG TAB PO SCH (13:14)
--- NOTE | 2018-04-14 13:38 | OP ---
DATE OF PROCEDURE: 04/14/2018 PROCEDURE PERFORMED: Endoscopic retrograde cholangiopancreatography. PREPROCEDURE DIAGNOSES: 1. Incidental noting of choledocholithiasis on CT. 2. Streptococcus pneumoniae sepsis, improving. ANESTHESIA: General endotracheal anesthesia. POSTPROCEDURE DIAGNOSES: 1. Choledocholithiasis. Two stones, one yellow and one black pigmented, removed from the common bile duct. 2. 2 cm dilated common bile duct. 3. Anesthesia was concerned about possible pharyngeal lesion at the time of intubation, could not really evaluate the pharyngeal area with a forward-viewing scope very well secondary to the fact the ET tube was in place and edema was in place. RECOMMENDATIONS: 1. ENT consult prior to extubation. If they preferred the patient be extubated and evaluate the patient later, that is fine. The patient did not have any signs of airway compromise per Anesthesia. 2. Advance diet as tolerated. 3. Repeat labs tomorrow. PROCEDURE IN DETAIL: The patient was informed of the risks, benefits, and possible complications of endoscopy including perforation, reaction to medication, aspiration, pancreatitis, and informed consent was obtained. The patient was brought into the endoscopy suite, where she was intubated. I was not in the room at that time, but apparently there was concern of a lesion in the pyriform sinus behind the arytenoid cartilage folds. The photo documentation was obtained by Anesthesia. The patient was intubated and placed in prone position. A copy center specialist film was obtained. The forward-viewing duodenoscope was advanced into the pharynx and because the ET tube and distortion of anatomy, we were not really be able to evaluate this area. The forward-viewing scope was able to be easily passed into the esophagus. The upper esophagus was normal. The upper esophageal sphincter area was normal. The endoscope was then advanced into the esophagus, stomach, and the second and third portions of the duodenum and was removed. There was some mild gastritis and on retroflexed views in the stomach, there were no other ulcers, masses, lesions, or erosions. The scope was removed. The patient was turned to the room and the side-viewing duodenoscope was carefully advanced through the bite-block into the esophagus, stomach, and duodenum and the ampulla was brought into place. Cannulation was obtained. Cholangiogram revealed filling defect in distal duct. Sphincterotomy was performed and yellow-pigmented stone was removed with a 12 mm balloon. The duct, however, looked about 15 to 20 mm. Therefore, a 15 mm balloon was placed. Occlusion cholangiogram was performed and one more pigmented stone was removed. No other filling defects were seen. The sphincterotomy was larger permitting the passage of a 15 mm balloon and therefore, if there are small stones present, these will pass on their own. The scope was removed. There was good hemostasis. The patient tolerated the procedure well without any complications. Job ID: [id number]
[2018-04-14] MEDS: Morphine 4 MG/ML VIAL SLOW IVP PRN ×2 (14:41→23:44)
[2018-04-14] MEDS: Saccharomyces boulardii 250 MG CAP PO SCH (14:45)
[2018-04-14] MEDS: HYDROcodone/Acetaminophen 5/325 mg Tablet PO PRN ×2 (16:29→20:20)
[2018-04-14] MEDS: Calcium Carbonate 500 MG ChewTAB PO PRN (16:32)
[2018-04-14] MEDS ORDERED: Lidocaine 1% PF 5 ML VIAL ONE (18:27)
[2018-04-14] MEDS ORDERED: Ondansetron PF 4 MG/2 ML Vial ONE (18:27)
[2018-04-14] MEDS ORDERED: PROPOFOL 200 MG/20 ML VIAL ONE (18:27)
[2018-04-14] MEDS ORDERED: Glycopyrrolate 0.2 MG/ML 5 ML SYRINGE ONE (18:27)
[2018-04-14] MEDS: Aspirin 81 mg Enteric Coated Tablet PO SCH (20:20)
[2018-04-14] MEDS: Lidocaine Patch Removal 1 EACH TOP SCH (20:27)
[2018-04-15 05:15] LABS: #Eosinphils 0.5 thou/uL (0.0-0.7); #Lymphocytes 1.4 thou/uL (1.20-3.40); #Monocytes 0.8 thou/uL (0.11-0.59); #Neutrophils 8.3 thou/uL (1.40-6.50); %Basophils 0.3 % (0.0-1.0); %Eosinophils 4.7 % (0.0-10.0); %Monocytes 7.4 % (0.0-10.0); %Neutrophils 74.6 % (42.0-75.0); Hemoglobin 9.3 g/dL (12.0-16.0); Mean Corpuscular HGB CONC 33.2 g/dL (32.0-36.0); Mean Corpuscular Volume 90.3 fL (78.0-98.0); Mean Platelet Volume 7.3 fL (7.4-10.4); Platelet Count 212 thou/uL (130-400); RBC Distribution Width 12.4 % (11.5-14.5); Red Blood Cell (RBC) Count 3.11 mill/uL (4.20-5.40); White Blood Cell (WBC) Count 11.1 thou/uL (4.8-10.8)
[2018-04-15 05:46] LABS: ALT (SGPT) 17 U/L (8-55); AST (SGOT) 26 U/L (5-34); Albumin 2.4 g/dL (3.4-4.8); Alkaline Phosphatase 170 U/L (40-150); Anion Gap 12 mmol/L (10-20); BUN (Urea Nitrogen) 17 mg/dL (9.8-20.1); Bilirubin, Total 0.7 mg/dL (0.2-1.2); Calc. Creatinine Clearance 50 mL/min (70-130); Calcium 8.2 mg/dL (7.8-10.44); Carbon Dioxide 29 mmol/L (23-31); Chloride 101 mmol/L (98-107); Estimated GFR-MDRD 55; Globulin 3.1 g/dL (2.4-3.5); Glucose 99 mg/dL (83-110); Magnesium 2.1 mg/dL (1.6-2.6); Phosphorus 3.2 mg/dL (2.3-4.7); Potassium 3.9 mmol/L (3.5-5.1); Protein, Total 5.5 g/dL (6.0-8.3); Sodium 138 mmol/L (136-145)
[2018-04-15] MEDS: 1/2 NS w/KCL 20 mEq 1,000 ML IV SCH (05:46)
[2018-04-15] MEDS: HYDROcodone/Acetaminophen 5/325 mg Tablet PO PRN ×5 (05:50→23:20)
[2018-04-15] MEDS: Lidocaine 5% Patch TD SCH (07:58)
[2018-04-15] MEDS: cefTRIAXone\\ROCEPHIN 1 GM in Sodium Chloride 0.9% 100 ML IVPB SCH (07:59)
[2018-04-15] MEDS: Acetaminophen 325 MG TAB PO SCH ×3 (08:03→20:58)
[2018-04-15] MEDS: Carvedilol 6.25 MG TAB PO SCH ×2 (08:03→17:14)
[2018-04-15] MEDS: Saccharomyces boulardii 250 MG CAP PO SCH (08:04)
[2018-04-15] MEDS: hydrALAZINE 25 MG TAB PO SCH ×3 (08:04→21:04)
[2018-04-15] MEDS: Amlodipine 5 MG TAB PO SCH ×2 (08:04→21:03)
[2018-04-15] MEDS: Citrucel 500 MG TAB PO SCH (08:05)
[2018-04-15] MEDS: Morphine 4 MG/ML VIAL SLOW IVP PRN ×4 (08:10→21:00)
--- NOTE | 2018-04-15 10:51 | OP ---
DATE OF PROCEDURE: 04/14/2018 PREOPERATIVE DIAGNOSIS: Laryngeal mass. POSTOPERATIVE DIAGNOSIS: Laryngeal mass. PROCEDURE PERFORMED: Direct laryngoscopy. ESTIMATED BLOOD LOSS: 0 mL. BRIEF HISTORY: This is a 73-year-old female, undergoing upper endoscopy. There was noted to be a mass present in the hypopharyngeal area. An emergent intraoperative consultation was obtained by us. DESCRIPTION OF PROCEDURE: The patient was in the endoscopy suite and was stable with oral intubation. The Dedo laryngoscope was used to visualize the oral cavity and oropharynx. Dentures were present and there was mild and moderate amount of dental paste present. The hypopharynx was visualized. The bilateral vocal cords appeared to be within normal limits. There was some debris that was possibly regurgitated within the piriform sinus, posterior cricoid area, and posterior pharyngeal wall. This was suctioned using a straight suction. There did not appear to be any mucosal lesions. The patient was then returned to Anesthesia for extubation. Job ID: [id number]
[2018-04-15] MEDS: guaiFENesin/Codeine Phosphate 200 mg/20 mg 10 ml UD Cup PO PRN (17:45)
--- NOTE | 2018-04-15 18:25 | PDOC.PN ---
- Subjective Encounter Start Date: 04/15/18 Encounter Start Time: 18:24 Subjective: Underwent ERCP yesterday. One loose stool today. No nausea. No vomiting -: Tolerated mashed potatoes. Has not been out of bed walking today. -: Endorses nonproductive cough, requests cough medicine - Objective Resuscitation Status - Order Detail: 04/08/18 18:45 Resuscitation Status Routine Resuscitation Status: FULL: Full Resuscitation Vital Signs & Weight: Vital Signs (12 hours) Temp Pulse Resp BP BP Pulse Ox 04/15/18 18:23 70 155/67 H 04/15/18 17:14 180/74 H 04/15/18 15:59 77 91 L 04/15/18 14:54 73 160/72 H 04/15/18 12:00 68 92 L 04/15/18 08:04 77 174/75 H 04/15/18 08:03 174/75 H 04/15/18 08:00 92 L 04/15/18 07:50 98.1 F 80 16 174/75 H 92 L Weight Weight 143 lb I&O: 04/14/18 04/15/18 04/16/18 06:59 06:59 06:59 Intake Total 1250 1008 600 Output Total 2100 2675 Balance -850 -1663 600 Result Diagrams: 04/15/18 04:17 04/15/18 04:17 Phys Exam - Physical Examination Constitutional: NAD Appears comfortable HEENT: PERRLA, oral pharynx no lesions Neck: supple, full ROM Respiratory: clear to auscultation bilateral Cardiovascular: RRR Gastrointestinal: soft, non-tender Musculoskeletal: no edema Neurological: non-focal Psychiatric: normal affect, A&O x 3 Skin: no rash Dx/Plan - Plan cont current plan of care, plan discussed w/ family, continue antibiotics, PT/OT , social worker clinical, incentive spirometry, out of bed/ambulate * A/P: * 1. Toxic metabolic encephalopathy * 2. Sepsis with acute organ dysfunction with Streptococcus pneumoniae bacteremia with possible Myositis ?source * 3. Acute kidney injury on chronic kidney disease stage 2, improving. * 4. Choledocholithiasis s/p ERCP. * 5. Elevated cardiac enzymes secondary to demand ischemia. * 6. Hypertension. * 7. Left hip and right wrist pain. * 8. Hypokalemia/hypomagnesemia * 9. Metabolic acidosis due to renal failure, resolved. * 10. Moderate protein-calorie malnutrition. * 11. Thrombocytopenia, improving. PLAN: Cough - trial of Robitussin AC Check AM CBC, metabolic panel has normalized SL IVF, optimize oral intake PT/OT Discussed home health as an option, patient declines facility placement Supportive care/abx C diff sent per GI
[2018-04-15] MEDS: Aspirin 81 mg Enteric Coated Tablet PO SCH (21:03)
[2018-04-15] MEDS: Lidocaine Patch Removal 1 EACH TOP SCH (21:05)
[2018-04-16] MEDS: guaiFENesin/Codeine Phosphate 200 mg/20 mg 10 ml UD Cup PO PRN ×2 (00:43→19:47)
[2018-04-16] MEDS: Morphine 4 MG/ML VIAL SLOW IVP PRN ×4 (03:13→19:47)
[2018-04-16 04:47] LABS: #Eosinphils 0.2 thou/uL (0.0-0.7); #Lymphocytes 1.3 thou/uL (1.20-3.40); #Monocytes 0.9 thou/uL (0.11-0.59); #Neutrophils 10.3 thou/uL (1.40-6.50); %Basophils 0.2 % (0.0-1.0); %Eosinophils 1.6 % (0.0-10.0); %Lymphocytes 10.2 % (21.0-51.0); %Monocytes 6.9 % (0.0-10.0); %Neutrophils 81.2 % (42.0-75.0); Hemoglobin 9.9 g/dL (12.0-16.0); Mean Corpuscular HGB CONC 33.4 g/dL (32.0-36.0); Mean Corpuscular Hemoglobin 30.2 pg (27.0-31.0); Mean Corpuscular Volume 90.6 fL (78.0-98.0); Mean Platelet Volume 7.3 fL (7.4-10.4); Platelet Count 259 thou/uL (130-400); RBC Distribution Width 12.4 % (11.5-14.5); Red Blood Cell (RBC) Count 3.26 mill/uL (4.20-5.40); White Blood Cell (WBC) Count 12.6 thou/uL (4.8-10.8)
[2018-04-16 05:16] LABS: ALT (SGPT) 13 U/L (8-55); AST (SGOT) 20 U/L (5-34); Albumin 2.6 g/dL (3.4-4.8); Alkaline Phosphatase 157 U/L (40-150); Anion Gap 13 mmol/L (10-20); BUN (Urea Nitrogen) 12 mg/dL (9.8-20.1); Bilirubin, Total 0.8 mg/dL (0.2-1.2); Calc. Creatinine Clearance 57 mL/min (70-130); Calcium 8.4 mg/dL (7.8-10.44); Carbon Dioxide 29 mmol/L (23-31); Chloride 100 mmol/L (98-107); Estimated GFR-MDRD 63; Globulin 3.2 g/dL (2.4-3.5); Glucose 115 mg/dL (83-110); Potassium 3.6 mmol/L (3.5-5.1); Protein, Total 5.8 g/dL (6.0-8.3); Sodium 138 mmol/L (136-145)
[2018-04-16] MEDS: HYDROcodone/Acetaminophen 5/325 mg Tablet PO PRN ×3 (06:29→16:49)
[2018-04-16] MEDS: hydrALAZINE 25 MG TAB PO SCH ×3 (08:09→20:54)
[2018-04-16] MEDS: Amlodipine 5 MG TAB PO SCH ×2 (08:10→20:54)
[2018-04-16] MEDS: Carvedilol 6.25 MG TAB PO SCH (08:10)
[2018-04-16] MEDS: Saccharomyces boulardii 250 MG CAP PO SCH (08:11)
[2018-04-16] MEDS: Acetaminophen 325 MG TAB PO SCH ×3 (08:11→20:54)
[2018-04-16] MEDS: cefTRIAXone\\ROCEPHIN 1 GM in Sodium Chloride 0.9% 100 ML IVPB SCH (08:58)
[2018-04-16] MEDS: Citrucel 500 MG TAB PO SCH (08:59)
[2018-04-16] MEDS: Lidocaine 5% Patch TD SCH ×2 (08:59→20:53)
--- NOTE | 2018-04-16 09:00 | PDOC.PN ---
- Subjective Encounter Start Date: 04/16/18 Encounter Start Time: 08:59 Subjective: Pain present overnight, primarily left hip and right wrist, same as before -: BP elevated overnight. I confirmed with patient that she uses no BP meds -: prior to this admission. Cough present, intermittant. - Objective Resuscitation Status - Order Detail: 04/08/18 18:45 Resuscitation Status Routine Resuscitation Status: FULL: Full Resuscitation Vital Signs & Weight: Vital Signs (12 hours) Pulse Resp BP BP Pulse Ox 04/16/18 08:10 88 196/77 H 04/16/18 08:09 88 196/77 H 04/16/18 00:00 92 L 04/15/18 23:30 78 16 159/68 H 92 L 04/15/18 21:04 71 169/72 H 04/15/18 21:03 71 169/72 H Weight Weight 143 lb I&O: 04/15/18 04/16/18 04/17/18 06:59 06:59 06:59 Intake Total 1008 1850 200 Output Total 2675 Balance -1667 1850 200 Result Diagrams: 04/16/18 04:08 04/16/18 04:08 Phys Exam - Physical Examination Appears fairly comfortable this morning HEENT: PERRLA, moist MMs Neck: supple, full ROM Respiratory: clear to auscultation bilateral Cardiovascular: RRR Gastrointestinal: soft, no distention Musculoskeletal: no edema right wrist with small effusion present Neurological: non-focal, moves all 4 limbs Psychiatric: normal affect, A&O x 3 Skin: no rash Dx/Plan - Plan cont current plan of care, plan discussed w/ family, continue antibiotics, PT/OT , social insurance administrator, incentive spirometry, DVT proph w/lovenox * A/P: * 1. Toxic metabolic encephalopathy * 2. Sepsis with acute organ dysfunction with Streptococcus pneumoniae bacteremia with possible Myositis ?source * 3. Acute kidney injury on chronic kidney disease stage 2, improving. * 4. Choledocholithiasis s/p ERCP. * 5. Elevated cardiac enzymes secondary to demand ischemia. * 6. Hypertension, persistent. * 7. Left hip and right wrist pain. * 8. Hypokalemia/hypomagnesemia * 9. Metabolic acidosis due to renal failure, resolved. * 10. Moderate protein-calorie malnutrition. * 11. Thrombocytopenia, improving. PLAN: Cough - Continue trial of Robitussin AC Pain - Expect ongoing need for [place]/tramadol. Consider outpatient evaluation of right wrist/left hip if not improving in a few weeks. History of Sjogren's. Rheumatology evaluation may be helpful in the future if symptoms persist. If pain is the limiting factor, consider long acting scheduled narcotics, though with her age, would prefer to use short acting intermittent therapy Continue Rocephin SL IVF, optimize oral intake, no lab ordered for tomorrow PT/OT Discussed home health as an option, patient declines facility placement Supportive care/abx C diff sent per GI, thus far patient has been unable to produce a sample HTN - titrated coreg. Discussed with patient, daughter in law. Patient high risk due to age/ comorbidites/need for IV analgesics. Disposition pending mobilization/safety/pain control
[2018-04-16] MEDS: Carvedilol 25 MG TAB PO SCH (16:50)
--- NOTE | 2018-04-16 16:59 | PRG ---
DATE OF SERVICE: 04/16/2018 SUBJECTIVE: Ms. Herrera has had no diarrhea. Nurses canceled the C diff order. She is eating and she is really here in the hospital still for her strep pneumo sepsis. OBJECTIVE: VITAL SIGNS: She has been afebrile last 48 hours, pulse is 74, blood pressure 146/67. ABDOMEN: Soft, nontender. LABORATORY DATA: White count 12, hemoglobin 9.9, platelet count 259. Alkaline phosphatase is 157, bilirubin 0.8. AST and ALT are normal. ASSESSMENT: 1. Choledocholithiasis, resolved. 2. Strep pneumonia, being seen by ID and Primary Service. PLAN: At this time, I am going to sign off. If I can be of any further assistance in the patient's care, please do not hesitate to contact me. Job ID: [id number]
[2018-04-16] MEDS: Aspirin 81 mg Enteric Coated Tablet PO SCH (20:55)
[2018-04-17] MEDS: Morphine 4 MG/ML VIAL SLOW IVP PRN ×2 (00:34→04:55)
--- NOTE | 2018-04-17 08:46 | PDOC.PN ---
- Subjective Encounter Start Date: 04/17/18 Encounter Start Time: 07:00 Subjective: Persistent right wrist and left hip pain. Endorses constipation. -: Requiring analgesics ([place]/morphine) about every 4 hours -: No nausea or vomiting - Objective Resuscitation Status - Order Detail: 04/08/18 18:45 Resuscitation Status Routine Resuscitation Status: FULL: Full Resuscitation Vital Signs & Weight: Weight Weight 143 lb I&O: 04/16/18 04/17/18 04/18/18 06:59 06:59 06:59 Intake Total 1849 2059 Balance 1849 2059 Result Diagrams: 04/16/18 04:08 04/16/18 04:08 Phys Exam - Physical Examination Constitutional: NAD HEENT: PERRLA, oral pharynx no lesions Neck: supple, full ROM Respiratory: clear to auscultation bilateral Cardiovascular: RRR Gastrointestinal: soft, non-tender Right wrist mild swelling present Neurological: non-focal, moves all 4 limbs Psychiatric: normal affect, A&O x 3 Skin: no rash Dx/Plan - Plan cont current plan of care, continue antibiotics, PT/OT, out of bed/ambulate * * A/P: * 1. Toxic metabolic encephalopathy * 2. Sepsis with acute organ dysfunction with Streptococcus pneumoniae bacteremia with possible Myositis ?source * 3. Acute kidney injury on chronic kidney disease stage 2, improving. * 4. Choledocholithiasis s/p ERCP. * 5. Elevated cardiac enzymes secondary to demand ischemia, resolved. * 6. Hypertension, persistent. * 7. Left hip and right wrist pain. * 8. Hypokalemia/hypomagnesemia * 9. Metabolic acidosis due to renal failure, resolved. * 10. Moderate protein-calorie malnutrition. * 11. Thrombocytopenia, improving. PLAN: Cough - Continue trial of Robitussin AC, stable Pain - Trial of MS Contin added, may need short course of long acting basal, scheduled pain medications to optimize PT and transition to home. Consider outpatient evaluation of right wrist/left hip if not improving in a few weeks. History of Sjogren's. Rheumatology evaluation may be helpful in the future if symptoms persist. Continue Rocephin for Strep pneumo bacteremia, transition to po upon discharge to home (expect early next week? pending mobilization) SL IVF, optimize oral intake, no lab ordered for tomorrow PT/OT Discussed home health as an option, patient declines facility placement Supportive care/abx C diff sent per GI several days ago, thus far patient has been unable to produce a sample, will cancel. Now constipation becoming an issue, will restart scheduled Senna, especially as starting MS contin as well HTN - titrated coreg 04/16, patient not on anti-HTN meds prior to admission. . Patient high risk due to age/comorbidites/need for analgesics. Disposition pending mobilization/safety/pain control. I discussed with her early next week as a goal.
[2018-04-17] MEDS: Citrucel 500 MG TAB PO SCH (09:32)
[2018-04-17] MEDS: Morphine ER 15 MG TAB PO SCH ×2 (09:32→20:04)
[2018-04-17] MEDS: Senokot S 8.6-50 MG TAB PO SCH ×2 (09:33→20:05)
[2018-04-17] MEDS: Carvedilol 25 MG TAB PO SCH ×2 (09:33→15:59)
[2018-04-17] MEDS: Acetaminophen 325 MG TAB PO SCH ×3 (09:33→20:04)
[2018-04-17] MEDS: Saccharomyces boulardii 250 MG CAP PO SCH (09:33)
[2018-04-17] MEDS: Amlodipine 5 MG TAB PO SCH ×2 (09:34→20:05)
[2018-04-17] MEDS: Lidocaine Patch Removal 1 EACH TOP SCH (09:34)
[2018-04-17] MEDS: hydrALAZINE 25 MG TAB PO SCH ×3 (09:34→20:05)
[2018-04-17] MEDS: cefTRIAXone\\ROCEPHIN 1 GM in Sodium Chloride 0.9% 100 ML IVPB SCH (09:43)
--- NOTE | 2018-04-17 14:15 | PRG ---
DATE OF SERVICE: 04/17/2018 SUBJECTIVE: The patient is transferred to the oncology unit. She is feeling better. Still with some moderate pain in the right hand. There is limitation in range of motion at the wrist and moderate pain in the left sacroiliac area with some limitation of motion, but not nearly as much as before. In the meantime, the patient had an ERCP to dislodge some stones that had been at the end of the CBD. Those were somewhat serendipitous findings from imaging studies. She did not have clinical evidence of obstruction at that time. She denies any headaches. She is eating well. No respiratory symptoms or abdominal pain. Voiding without difficulty. OBJECTIVE: VITAL SIGNS: Temperature max 99.2, blood pressure 170/80, pulse 85, respirations 18, O2 saturation 94% on nasal cannula. GENERAL: Awake, oriented, appears better than when I first had seen her, in no distress. HEART: S1 and S2. Regular rate. LUNGS: Clear to auscultation and percussion. ABDOMEN: Soft, not distended. EXTREMITIES: The right hand is much less swollen. Still one area in the medial aspect of the dorsal right wrist, which is a bit swollen and there is significant limitation in range of motion of the wrist. There is no erythema noted. The left sacroiliac region is much less tender than before and she has better range of motion. The left hip has no pain on range of motion. LABORATORY DATA: Sodium 138, creatinine 0.88, which is improved from admission. Liver profile unremarkable except for alkaline phosphatase 157. Albumin is up to 2.6. White cell count is 12.6, hemoglobin 9.9, platelets 259 with 81% neutrophils. Microbiology as noted before with Streptococcus pneumoniae with a broad susceptibility profile. ASSESSMENT AND DISCUSSION: Hypertension, irritable bowel syndrome, acute renal failure, Streptococcus pneumoniae bacteremia, likely from upper respiratory tract origin with toxic metabolic encephalopathy, marked improvement. The patient also with evidence of soft tissue involvement of the right hand and possible left sacroiliitis. MRI was not conclusive due to some motion abnormalities, may have to be repeated. I would advise transitioning to oral amoxicillin for completion of therapy and treat for another 4 weeks and consider repeating the MRI of the right wrist/hand and the left pelvis/sacroiliac region. Job ID: [id number]
[2018-04-17] MEDS: HYDROcodone/Acetaminophen 5/325 mg Tablet PO PRN (16:00)
--- NOTE | 2018-04-17 18:07 | EKG ---
Test Reason : AMS Blood Pressure : / mmHG Vent. Rate : 100 BPM Atrial Rate : 100 BPM P-R Int : 142 ms QRS Dur : 082 ms QT Int : 342 ms P-R-T Axes : 064 017 028 degrees QTc Int : 441 ms Normal sinus rhythm Normal ECG Confirmed by TRISTAN KNAPP DO ([id number]), editorial intern MASTER GARZA ([id number] on 04/17/2018 6:06:58 PM Referred By: Confirmed By:TRISTAN KNAPP DO
[2018-04-17] MEDS: Aspirin 81 mg Enteric Coated Tablet PO SCH (20:05)
[2018-04-17] MEDS: Lidocaine 5% Patch TD SCH (20:06)
[2018-04-17] MEDS: guaiFENesin/Codeine Phosphate 200 mg/20 mg 10 ml UD Cup PO PRN (20:57)
[2018-04-18] MEDS: HYDROcodone/Acetaminophen 5/325 mg Tablet PO PRN ×3 (04:59→20:29)
[2018-04-18] MEDS: Methyl Salicylate/Menthol 85 GM TUBE TOP PRN ×2 (05:30→19:53)
[2018-04-18] MEDS: Morphine ER 15 MG TAB PO SCH ×2 (08:00→20:28)
[2018-04-18] MEDS: Morphine 4 MG/ML VIAL SLOW IVP PRN (08:00)
[2018-04-18] MEDS: Amlodipine 5 MG TAB PO SCH ×2 (08:07→20:26)
[2018-04-18] MEDS: Senokot S 8.6-50 MG TAB PO SCH ×2 (08:07→20:27)
[2018-04-18] MEDS: Saccharomyces boulardii 250 MG CAP PO SCH (08:07)
[2018-04-18] MEDS: Acetaminophen 325 MG TAB PO SCH ×3 (08:08→20:27)
[2018-04-18] MEDS: hydrALAZINE 25 MG TAB PO SCH ×3 (08:08→20:26)
[2018-04-18] MEDS: Carvedilol 25 MG TAB PO SCH ×2 (08:08→17:04)
[2018-04-18] MEDS: Citrucel 500 MG TAB PO SCH (08:15)
[2018-04-18] MEDS: cefTRIAXone\\ROCEPHIN 1 GM in Sodium Chloride 0.9% 100 ML IVPB SCH (08:15)
[2018-04-18] MEDS: Lidocaine Patch Removal 1 EACH TOP SCH (13:03)
[2018-04-18] MEDS: guaiFENesin/Codeine Phosphate 200 mg/20 mg 10 ml UD Cup PO PRN (14:39)
[2018-04-18] MEDS ORDERED: predniSONE 20 MG TAB PO SCH (15:45)
--- NOTE | 2018-04-18 15:56 | PRG ---
DATE OF SERVICE: 04/18/2018 SUBJECTIVE: The patient was seen and examined at the bedside. She still complain a lot about her right wrist pain and left hip pain. She said that maybe the wrist is somewhat better, but the hip pain is still very significant. PHYSICAL EXAMINATION: VITAL SIGNS: Blood pressure is 131/63, temperature is 98.6, pulse is 71, respiratory rate is 20, and O2 saturation is 97% on 1 L. HEENT: Head is atraumatic and normocephalic. Eyes are PERRLA. Sclerae are nonicteric. Conjunctivae palish. Oral mucosa is moist. NECK: Supple. LUNGS: Clear. HEART: S1 and S2 normal. No S3. No S4. ABDOMEN: Soft, nontender, and nondistended. Bowel sounds are present. No organomegaly. Right wrist is still swollen. There is no erythema. Swelling is approximately 1+. Left hip sacroiliac joint area is tender to touch, but there is no any skin erythema or signs of inflammation of this area. NEUROLOGIC: She is alert and oriented x4. There is no any motor or sensory deficits. Cranial nerves are intact. LABORATORY DATA: None today. Microbiology, no new findings. IMPRESSION: 1. Toxic metabolic encephalopathy, resolved. 2. Sepsis with acute organ dysfunction with Streptococcus pneumoniae bacteremia. 3. Acute kidney injury, resolved. 4. Cholelithiasis, status post endoscopic retrograde cholangiopancreatography. 5. Elevated cardiac enzymes secondary to demand ischemia, resolved. 6. Hypertension. 7. Left hip and right wrist pain of unclear etiology. It is felt that they are associated with bacteremia, but MRIs did not show any focus of infection in those areas. 8. Hypokalemia and hypomagnesemia, resolved. 9. Thrombocytopenia, improved. PLAN: Plan is to start her on colchicine 0.6 mg twice a day and continue IV antibiotic and continue current regimen. Job ID: [id number]
[2018-04-18] MEDS: Aspirin 81 mg Enteric Coated Tablet PO SCH (20:27)
[2018-04-18] MEDS: Lidocaine 5% Patch TD SCH (20:30)
[2018-04-19] MEDS: Artificial Tear Sol 15 ML BOT EA EYE PRN ×2 (00:07→11:11)
[2018-04-19] MEDS: HYDROcodone/Acetaminophen 5/325 mg Tablet PO PRN ×2 (03:53→17:25)
[2018-04-19 08:05] LABS: #Lymphocytes 0.9 thou/uL (1.20-3.40); #Monocytes 0.5 thou/uL (0.11-0.59); #Neutrophils 4.4 thou/uL (1.40-6.50); %Basophils 0.3 % (0.0-1.0); %Eosinophils 0.6 % (0.0-10.0); %Monocytes 7.9 % (0.0-10.0); %Neutrophils 76.2 % (42.0-75.0); Hemoglobin 9.4 g/dL (12.0-16.0); Mean Corpuscular HGB CONC 33.3 g/dL (32.0-36.0); Mean Corpuscular Hemoglobin 30.1 pg (27.0-31.0); Mean Corpuscular Volume 90.4 fL (78.0-98.0); Mean Platelet Volume 6.7 fL (7.4-10.4); Platelet Count 544 thou/uL (130-400); RBC Distribution Width 12.6 % (11.5-14.5); Red Blood Cell (RBC) Count 3.13 mill/uL (4.20-5.40); White Blood Cell (WBC) Count 5.8 thou/uL (4.8-10.8)
[2018-04-19] MEDS: cefTRIAXone\\ROCEPHIN 1 GM in Sodium Chloride 0.9% 100 ML IVPB SCH (08:15)
[2018-04-19] MEDS: Carvedilol 25 MG TAB PO SCH ×2 (08:18→17:25)
[2018-04-19] MEDS: Citrucel 500 MG TAB PO SCH (08:19)
[2018-04-19] MEDS: Acetaminophen 325 MG TAB PO SCH ×3 (08:19→21:15)
[2018-04-19] MEDS: Amlodipine 5 MG TAB PO SCH ×2 (08:19→21:14)
[2018-04-19] MEDS: hydrALAZINE 25 MG TAB PO SCH ×3 (08:20→21:12)
[2018-04-19] MEDS: Morphine ER 15 MG TAB PO SCH ×2 (08:20→21:12)
[2018-04-19] MEDS: Senokot S 8.6-50 MG TAB PO SCH ×2 (08:21→21:14)
[2018-04-19] MEDS: Saccharomyces boulardii 250 MG CAP PO SCH (08:21)
[2018-04-19 08:26] LABS: ALT (SGPT) 11 U/L (8-55); AST (SGOT) 13 U/L (5-34); Albumin 2.9 g/dL (3.4-4.8); Alkaline Phosphatase 115 U/L (40-150); Anion Gap 14 mmol/L (10-20); BUN (Urea Nitrogen) 13 mg/dL (9.8-20.1); Bilirubin, Total 0.5 mg/dL (0.2-1.2); Calc. Creatinine Clearance 59 mL/min (70-130); Carbon Dioxide 28 mmol/L (23-31); Chloride 100 mmol/L (98-107); Estimated GFR-MDRD 65; Globulin 3.4 g/dL (2.4-3.5); Glucose 130 mg/dL (83-110); Protein, Total 6.3 g/dL (6.0-8.3); Sodium 138 mmol/L (136-145)
[2018-04-19] MEDS: predniSONE 20 MG TAB PO SCH (09:09)
[2018-04-19] MEDS: Lidocaine Patch Removal 1 EACH TOP SCH (09:11)
[2018-04-19] MEDS: Calcium Carbonate 500 MG ChewTAB PO PRN (15:11)
--- NOTE | 2018-04-19 15:40 | PRG ---
DATE OF SERVICE: 04/19/2018 SUBJECTIVE: The patient was seen and examined at bedside. She is significantly better. Her right wrist and left hip pain significantly improved after she was started on prednisone. OBJECTIVE: VITAL SIGNS: Blood pressure is 130/61, pulse is 76, temperature is 98.1, O2 saturation is 94% on room air, and respiratory rate is 18. HEENT: Her head is atraumatic and normocephalic. Eyes are PERRLA. Sclerae are nonicteric. Oral mucosa is moist. NECK: Supple. No lymphadenopathy. LUNGS: Clear. HEART: S1 and S2, normal. No S3. No S4. ABDOMEN: Soft, nontender, nondistended. Right wrist is significantly less swollen on physical examination. NEUROLOGIC: She is alert and oriented x4. There are no motor or sensory deficits. LABORATORY DATA: Labs showed white count of 5.8, hemoglobin 9.4, hematocrit 28.3, platelet count is 544. Normal chemistry. IMPRESSION: 1. Toxic metabolic encephalopathy, resolved. 2. Sepsis with acute organ dysfunction with Streptococcus pneumoniae bacteremia. 3. Acute kidney injury, resolved. 4. Cholelithiasis, status post endoscopic retrograde cholangiopancreatography. 5. Elevated cardiac enzymes secondary to demand ischemia, resolved. 6. Hypertension. 7. Left hip pain and right wrist pain, most likely secondary to inflammatory etiology, which responded nicely to steroid therapy. 8. Hypokalemia and hypomagnesemia, resolved. 9. Thrombocytopenia, improved. PLAN: The patient was not placed on colchicine, which was supposed to be done yesterday, because of interaction with Coreg, so she was placed on 40 mg of prednisone. She had one dose last night and one dose this morning. She feels significantly better. She is arranging some help at home and she will get additional dose of prednisone tomorrow morning and we will discharge her home, most likely tomorrow after that. Job ID: [id number]
[2018-04-19] MEDS: Aspirin 81 mg Enteric Coated Tablet PO SCH (21:15)
[2018-04-19] MEDS: Lidocaine 5% Patch TD SCH (21:15)
[2018-04-20] MEDS: HYDROcodone/Acetaminophen 5/325 mg Tablet PO PRN ×3 (01:33→16:57)
[2018-04-20 07:57] VITALS: TEMP 98.2
[2018-04-20] MEDS: Carvedilol 25 MG TAB PO SCH ×2 (07:59→16:56)
[2018-04-20] MEDS: cefTRIAXone\\ROCEPHIN 1 GM in Sodium Chloride 0.9% 100 ML IVPB SCH (07:59)
[2018-04-20] MEDS: Acetaminophen 325 MG TAB PO SCH ×2 (08:00→14:23)
[2018-04-20] MEDS: predniSONE 20 MG TAB PO SCH (08:00)
[2018-04-20] MEDS: Amlodipine 5 MG TAB PO SCH (08:00)
[2018-04-20] MEDS: Morphine ER 15 MG TAB PO SCH (08:01)
[2018-04-20] MEDS: hydrALAZINE 25 MG TAB PO SCH ×2 (08:01→14:24)
[2018-04-20] MEDS: Citrucel 500 MG TAB PO SCH (08:01)
[2018-04-20] MEDS: Saccharomyces boulardii 250 MG CAP PO SCH (08:02)
[2018-04-20] MEDS: Senokot S 8.6-50 MG TAB PO SCH (08:02)
[2018-04-20] MEDS: Lidocaine Patch Removal 1 EACH TOP SCH (09:22)
--- NOTE | 2018-04-20 16:57 | DIS ---
DATE OF ADMISSION: 04/08/2018 DATE OF DISCHARGE: 04/20/2018 CONSULTANTS: Dr. Tong, for Orthopedic evaluation; Dr. Hilton for GI; Dr. Kannan Truong, for Infectious Disease Service; Dr. Jose Benjamin for ENT. PROCEDURES: 1. Endoscopic retrograde cholangiopancreatography by Dr. Rob Hilton. 2. Direct laryngoscopy by Dr. Jose Benjamin for ENT evaluation of possible lesion in the larynx. HOSPITAL COURSE: The patient is a 73-year-old female with chronic pain syndrome on chronic NSAIDs, who presented to the emergency room with altered mental status. She was brought by the family. Apparently, she has been having some mental issues for the last 3 days prior to this admission. It was intermittent. It was difficult to get response from the patient. It was taking longer to get any response. She complained about left hip pain and right wrist pain. The family denied any fever or chills. There was some nausea and vomiting. She had normal bowel movements. She had some abdominal cramping during episodes of nausea and vomiting. There was no history of travel, immobilization, double vision, blurred vision, or facial asymmetry. In the emergency room, her temperature was up to 99.1, respirations 14, pulse 98, blood pressure 98/59, and O2 saturation was 94% on room air. She was found to have 20% bandemia with acute kidney injury with BUN of 58, and creatinine 4.72 with her creatinine at 0.83 a year ago. The patient was admitted to the hospital. Her white count at the time of admission was 9.2, platelets 115. CRP was 28. Ammonia was 20. Lactic acid 1.3 and CK-MB 20. Troponin was 0.052. Alkaline phosphatase 208. Urinalysis was negative for WBCs or bacteria. Chest x-ray did not show any infiltrates. CT scan of the brain was negative for any acute findings. X-ray of the pelvis and hip was negative for acute fracture. Right forearm x-ray was negative for acute fracture. CT of the abdomen, renal stone protocol, showed dilated intrahepatic and extrahepatic biliary tree system with the common duct measuring up to 12 to 13 mm. There was possible obstructing choledocholithiasis near the papilla and ERCP was recommended. EKG showed sinus rhythm with nonspecific ST-T wave changes. The patient was admitted to telemetry with IV antibiotics, vancomycin and meropenem. Blood cultures, GI and ID consultation. Her NSAIDs were stopped. Neuro checks were done. Echocardiogram was requested. Subsequently, the patient was seen by orthopedic surgeon, who recommended just pain management and Dr. Hilton for GI evaluation, who originally did not recommend any procedure, but later on, he decided to do ERCP when the blood cultures came back positive 2/2 for Streptococcus pneumoniae and Infectious Disease design center consultant requested further evaluation of hepatobiliary tract. Her urine cultures came back negative and influenza type A and B direct EIA was negative. Echocardiogram was done and it did not show any vegetations on the valves. Intracardiac, it showed only diastolic dysfunction and moderate to severe tricuspid regurgitation. Subsequently, the patient underwent a pelvic MRI, which showed some nonspecific subcutaneous edema change adjacent to both hips along with some mild edema changes near the right pectineus muscle and both obturator internus muscles, more prominent on the left. Also, there was mild edema change seen anterior to the right hip with some edema change interspersed between the muscle groups, but not involving the muscles. It was felt that this could be from the fall, but the patient never had any fall according to her. Also, she underwent right upper extremity MRI which showed no evidence of osteomyelitis or any definite signs of any abscess collection. There was some mild edema changes between the distal radius and ulna of the distal forearm. There was chronic appearing triangular fibrocartilage tear. During this hospitalization, the patient was complaining about her right wrist and left hip pain, which did not improve much after she was placed on morphine: The patient was seen by Dr. Truong for ID consultation and he felt that this was most likely upper respiratory tract origin of streptococcal bacteremia. In the meantime, the patient's metabolic encephalopathy resolved, and she was changed from vancomycin and meropenem to Rocephin IV. Subsequently, the patient was still complaining about the pain in her right wrist and left hip. She was placed on steroids, on prednisone 40 mg and her pain almost completely disappeared from both right wrist and the left hip area. She did physical therapy. Follow up recommendation from Dr. Truong was to switch her to oral amoxicillin for 4 weeks for her streptococcal pneumonia bacteremia and do re-evaluation of her right wrist and left hip in [address] scan. At this point, the patient is switched to amoxicillin orally for outpatient basis use. This is going to be 500 mg three times a day for 30 days. She will have 320 mg tablets of prednisone, she will take one tablet once a day for the next couple of days, then she will take half a tablet for additional two days. She will use tramadol 100 mg q.6 hours p.r.n. as needed for the pain control and she will use carvedilol 25 mg twice a day along with amlodipine 5 mg twice a day for blood pressure. During this hospitalization, we had to start her on those two medications to control her blood pressure. She will also be on Florastor one tablet daily. Clinically, she improved significantly. Her blood pressure is 138/63, pulse is 68, temperature is 98.2, respirations 18, and O2 saturation is 94% on room air. She is seen and examined before she is discharged. PHYSICAL EXAMINATION: LUNGS: Clear. HEART: S1 and S2 normal. No S3. No S4. ABDOMEN: Soft, nontender. MUSCULOSKELETAL: The right wrist swelling significantly improved, almost gone and the left hip pain is almost completely gone to. FOLLOWUP: She is going to follow up with her primary care physician in 1 week. DIET: She will stay on regular diet. ACTIVITIES: As tolerated. She will also see Dr. Oconnor, if the pain comes back. Apparently, she has a history of Sjogren syndrome and she saw this physician, roll forming supervisor, one time before. This discharge time is more than 30 minutes. Job ID: [id number]
[2018-04-20 16:59] VITALS: BP 168/74
--- NOTE | 2018-04-21 09:35 | RAD ---
ERCP: 04/14/2018 COMPARISON: None. FINDINGS: Images are provided for interpretation on 04/21/2018. The examination consists of nine images of the right upper quadrant. Initial images demonstrate contrast media injected into the common bile duct, demonstrating nonspecific, diffuse CBD dilation. Clips in the right upper quadrant are noted, evide nce of a prior cholecystectomy. Later imaging demonstrates a stent within the duct. There is a ball oon inflated within the duct on one of the images. The distal CBD is never opacified, and no contras t media is seen within the duodenum, which may signify mass lesion or stricture in the region of the distal CBD. IMPRESSION: Limited endoscope retrograde cholangiopancreatography, as detailed above. POS: BETH
== END 2018-04-20 17:35 | disposition home or self-care (01) | DRG 871 ==
LOC: ERS 13:18 → 2SE 16:11 → ONC 04-12 17:11
PROVIDERS: ADMIT Internal Medicine; ATTEND Internal Medicine
PROC: 0FC98ZZ Extirpation of Matter from Common Bile Duct, Via Natural or Artificial Opening Endoscopic (ICD-10-PCS; principal; 2018-04-14)
PROC: 0CJS8ZZ Inspection of Larynx, Via Natural or Artificial Opening Endoscopic (ICD-10-PCS; 2018-04-14)
DX: A40.3 Sepsis due to Streptococcus pneumoniae (principal); G92 Toxic encephalopathy; R65.20 Severe sepsis without septic shock; N17.9 Acute kidney failure, unspecified; I24.8 Other forms of acute ischemic heart disease; E87.2 Acidosis; E44.0 Moderate protein-calorie malnutrition; K29.70 Gastritis, unspecified, without bleeding; I12.9 Hypertensive chronic kidney disease with stage 1 through stage 4 chronic kidney disease, or unspecified chronic kidney disease; N18.2 Chronic kidney disease, stage 2 (mild); D69.59 Other secondary thrombocytopenia; K80.50 Calculus of bile duct without cholangitis or cholecystitis without obstruction; J38.7 Other diseases of larynx; M24.131 Other articular cartilage disorders, right wrist; E83.42 Hypomagnesemia; E86.0 Dehydration; E87.6 Hypokalemia; G89.4 Chronic pain syndrome; M53.3 Sacrococcygeal disorders, not elsewhere classified; M35.00 Sjogren syndrome, unspecified; Z68.24 Body mass index [BMI] 24.0-24.9, adult; K58.9 Irritable bowel syndrome, unspecified; Z79.1 Long term (current) use of non-steroidal anti-inflammatories (NSAID); Z79.82 Long term (current) use of aspirin
CPT/HCPCS: 36415; 51701; 70450; 71045; 72170; 72195; 74176; 74330; 80053; 80202; 81003; 81015; 82140; 82553; 82570; 83036; 83605; 83690; 83735; 83880; 84100; 84156; 84484; 85025; 85610; 85730; 86140; 87040; 87077; 87086; 87149; 87186; 87804; 90471; 90662; 93005; 93306; 96361; 96365; 96367; A4353; G0008; G8978-GP-CJ; G8978-GP-CN; G8979-GP-CJ; G8979-GP-CK; G8987-GO-CK; G8988-GO-CI; J0696; J1610; J2001; J2185; J2270; J2405; J2543; J2704; J3010; J3370; J3475; J7042; J7050; J7506; Q9961